=== PATIENT | female | born 1960 | race African-American/Black ===

== ENCOUNTER 2018-02-06 03:33 | Inpatient (IN) | payer OTHER ==
[2018-02-06] MEDS ORDERED: Albuterol Sulfate 2.5 mg/3 ml Neb ONE ×2 (03:54→05:27)
[2018-02-06] MEDS ORDERED: Dexamethasone 10 MG/ML VIAL ONE (03:55)
[2018-02-06 04:03] LABS: Actual Bicarbonate (HCO3a) 23.9 mEq/L (22-28); CO2 Tension 39.6 mmHg (35.0-45.0); O2 Tension (PaO2) 59.8 mmHg (80.0-100.0)
[2018-02-06 04:04] LABS: Base Excess (BEa) -0.7 mEq/L (-2.0 to +3.0); Hematocrit-ABG 47.8 % (36.0-47.0); Hemoglobin (Hb) 16.3 g/dL (12.0-16.0)
[2018-02-06 04:05] LABS: Analyzer IN Cardio ER; Calcium, Ionized 1.2 mmol/L (1.12-1.30); Puncture Site RRA
[2018-02-06 04:38] LABS: #Eosinphils 0.8 thou/uL (0.0-0.7); #Lymphocytes 1.6 thou/uL (1.20-3.40); #Monocytes 0.4 thou/uL (0.11-0.59); #Neutrophils 2.8 thou/uL (1.40-6.50); %Basophils 0.8 % (0.0-1.0); %Eosinophils 13.7 % (0.0-10.0); %Lymphocytes 28.4 % (21.0-51.0); %Monocytes 7.6 % (0.0-10.0); %Neutrophils 49.6 % (42.0-75.0); Mean Corpuscular HGB CONC 33.7 g/dL (32.0-36.0); Mean Corpuscular Hemoglobin 29.8 pg (27.0-31.0); Mean Corpuscular Volume 88.4 fL (78.0-98.0); Mean Platelet Volume 8.1 fL (7.4-10.4); Platelet Count 179 thou/uL (130-400); RBC Distribution Width 12.2 % (11.5-14.5); White Blood Cell (WBC) Count 5.7 thou/uL (4.8-10.8)
[2018-02-06 04:57] LABS: ALT (SGPT) 11 U/L (8-55); AST (SGOT) 21 U/L (5-34); Albumin 4.9 g/dL (3.5-5.0); Alkaline Phosphatase 109 U/L (40-150); Anion Gap 15 mmol/L (10-20); BUN (Urea Nitrogen) 20 mg/dL (9.8-20.1); Bilirubin, Total 1.6 mg/dL (0.2-1.2); CK (CPK) 143 U/L (29-168); Calc. Creatinine Clearance 0 mL/min (70-130); Calcium 9.4 mg/dL (7.8-10.44); Carbon Dioxide 24 mmol/L (22-29); Chloride 106 mmol/L (98-107); Estimated GFR-MDRD 72; Globulin 2.7 g/dL (2.4-3.5); Glucose 95 mg/dL (70-105); Lipase 20 U/L (8-78); Potassium 3.8 mmol/L (3.5-5.1); Protein, Total 7.6 g/dL (6.0-8.3); Sodium 141 mmol/L (136-145)
[2018-02-06 04:59] LABS: CKMB 2.1 ng/mL (0-6.6)
[2018-02-06 05:07] LABS: Troponin I Less than 0.010 ng/mL (< 0.028)
[2018-02-06] MEDS ORDERED: Magnesium Sulfate 2 GM in Sodium Chloride 0.9% 100 ML IVPB SCH (05:45)
[2018-02-06] MEDS ORDERED: Nitroglycerin 0.4 MG TAB (25 Tab Bottle) ONE (05:51)
[2018-02-06] MEDS ORDERED: Ondansetron ODT 4 MG TAB SL PRN (07:29)
[2018-02-06] MEDS ORDERED: Ondansetron HCl/PF 4 MG/2 ML Vial IVP PRN (07:29)
[2018-02-06] MEDS ORDERED: Sodium Chloride 0.9% 1,000 ML IV SCH (07:29)
[2018-02-06 07:34] VITALS: BMI 26.3
--- NOTE | 2018-02-06 08:04 | RAD ---
SINGLE VIEW OF THE CHEST: COMPARISON: 10/21/15. HISTORY: Dyspnea. FINDINGS: Single view of the chest shows a normal sized cardiomediastinal silhouette. There is no evidence of c onsolidation, mass, or pleural effusion. The bones are unremarkable. IMPRESSION: No evidence of acute cardiopulmonary disease. POS: [facility]
[2018-02-06] MEDS ORDERED: Cepastat Lozenges 1 LOZ PO PRN (08:38)
[2018-02-06] MEDS: Sodium Chloride 0.9% 1,000 ML IV SCH ×2 (08:56→18:10)
--- NOTE | 2018-02-06 09:05 | HP ---
HISTORY OF PRESENT ILLNESS: This is a 57-year-old black female with a history of schizophrenia, bipo lar disorder, well controlled, who presents with a 2-day history of increasing cough, congestion and shortness of breath. No complaints of fever. She does smoke a half pack per day of tobacco for over 35 years. She has had no prior hospitalizations. She does use recreational drugs. She has been fa irly stable over the past several years. PAST MEDICAL HISTORY: Hypertension, hyperlipidemia, bipolar disorder, schizophrenia, overactive blad donna. PAST SURGICAL HISTORY: Include vaginal delivery x1, and BTL, total abdominal hysterectomy in 04/2010, colonoscopy with polyp resection by Dr. Griffith in 04/2014, repeat 5 years. EGD normal in 04/2014. FAMILY HISTORY: Father with Alzheimer's. Mother with diabetes, breast cancer, hypertens ion. Maternal grandmother with heart disease. Maternal aunt with breast, throat and stomach cancer. SOCIAL HISTORY: She is single. She does smoke half pack per day x35 years. She just drinks occasio nal alcohol. She is on Disability. She lives with her mother, children and siblings. She does have 4 kids. MEDICATIONS: Coreg 12.5 p.o. b.i.d., Seroquel 300 p.o. b.i.d., Lexapro 20 mg daily, simvastatin 40 d aily. ALLERGIES: None. REVIEW OF SYSTEMS: As above. PHYSICAL EXAMINATION: VITAL SIGNS: Blood pressure 167/105, temperature 98.4, pulse 90, respirations 18, pulse ox 98 on 2 l iters O2. GENERAL: The patient is in mild respiratory distress with a moderate cough. HEENT: Clear. HEART: Regular rate and rhythm. LUNGS: With tight breath sounds, minimal air movement. ABDOMEN: Soft, nontender. EXTREMITIES: No edema. LABORATORY: White count 5.7, H&H 17 and 40, platelet of 179. Sodium 141, potassium 3.8, chloride 10 6, creatinine 0.97, BUN 20, glucose 95. Liver functions normal. Troponin I less than 0.010. BNP 59 , lipase 20. ASSESSMENT: 1. Chronic obstructive pulmonary disease exacerbation. 2. Bronchiolitis. 3. History of drug use. 4. Hypertension. 5. Hyperlipidemia. 6. Bipolar disorder. 7. Schizophrenia. PLAN: 1. IV hydration with normal saline at 150 mL per hour. 2. DuoNeb neb treatments q.4 hours. 3. Solu-Medrol 40 IV q.6 hours. 4. Levaquin 750 IV daily. 5. Will hold Coreg for now since patient is wheezing. We will start lisinopril 20 q.a.m., and Norva sc 5 mg p.o. daily. We will continue to monitor her blood pressure throughout the day. 6. Add cough drops. 7. We will also do a serum and urine drug screen.
[2018-02-06] MEDS: Escitalopram Oxalate 20 mg Tablet PO SCH (09:57)
[2018-02-06] MEDS: Amlodipine 5 MG TAB PO SCH (09:57)
[2018-02-06] MEDS: Lisinopril 20 MG TAB PO SCH (09:57)
[2018-02-06 10:35] LABS: Amphetamine Not Detected (NotDetected); Barbiturates Screen Not Detected (NotDetected); Benzodiazepine Screen Not Detected (NotDetected); Cocaine Metabolite Screen Detected (NotDetected); Medtox Control Line Valid? VALID (VALID); Medtox Reader # READER 1; Methadone Not Detected (NotDetected); Methamphetamine Not Detected (NotDetected); Opiate Screen Not Detected (NotDetected); Oxycodone Screen Not Detected (NotDetected); Phencyclidine (PCP) Not Detected (NotDetected); THC/Cannabinoid Screen Not Detected (NotDetected); Tricyclic Screen Not Detected (NotDetected)
[2018-02-06] MEDS ORDERED: cloNIDine 0.1 MG TAB PO PRN (18:04)
[2018-02-06] MEDS ORDERED: ALPRAZolam 0.5 MG TAB PO PRN (18:06)
[2018-02-06] MEDS: Atorvastatin Calcium 20 MG TAB PO SCH (20:33)
[2018-02-07] MEDS: Sodium Chloride 0.9% 1,000 ML IV SCH ×5 (00:02→23:57)
[2018-02-07 06:02] LABS: #Lymphocytes 0.8 thou/uL (1.20-3.40); #Monocytes 0.3 thou/uL (0.11-0.59); #Neutrophils 13.5 thou/uL (1.40-6.50); %Basophils 0.1 % (0.0-1.0); %Eosinophils 0.1 % (0.0-10.0); %Lymphocytes 5.6 % (21.0-51.0); %Monocytes 2.1 % (0.0-10.0); %Neutrophils 92.1 % (42.0-75.0); Hemoglobin 15.2 g/dL (12.0-16.0); Mean Corpuscular HGB CONC 34.4 g/dL (32.0-36.0); Mean Corpuscular Hemoglobin 30.7 pg (27.0-31.0); Mean Corpuscular Volume 89.4 fL (78.0-98.0); Mean Platelet Volume 8.4 fL (7.4-10.4); Platelet Count 180 thou/uL (130-400); RBC Distribution Width 12.2 % (11.5-14.5); Red Blood Cell (RBC) Count 4.96 mill/uL (4.20-5.40); White Blood Cell (WBC) Count 14.6 thou/uL (4.8-10.8)
[2018-02-07 06:22] LABS: Anion Gap 15 mmol/L (10-20); BUN (Urea Nitrogen) 12 mg/dL (9.8-20.1); Calc. Creatinine Clearance 87 mL/min (70-130); Calcium 9.3 mg/dL (7.8-10.44); Carbon Dioxide 18 mmol/L (22-29); Estimated GFR-MDRD 87; Glucose 139 mg/dL (70-105); Potassium 3.8 mmol/L (3.5-5.1); Sodium 142 mmol/L (136-145)
[2018-02-07 06:27] LABS: Chloride 113 mmol/L (98-107)
[2018-02-07] MEDS: Amlodipine 5 MG TAB PO SCH (08:15)
[2018-02-07] MEDS: Lisinopril 20 MG TAB PO SCH (08:15)
[2018-02-07] MEDS: Escitalopram Oxalate 20 mg Tablet PO SCH (08:15)
[2018-02-07] MEDS ORDERED: guaiFENesin/Dextromethorphan 10 ML UDCUP PO PRN (08:42)
--- NOTE | 2018-02-07 10:11 | PRG ---
DATE OF SERVICE: 02/07/2018 SUBJECTIVE: The patient is feeling better today, but she still has significant cough and congestion. OBJECTIVE: VITAL SIGNS: Temperature 98.1, pulse 99, pulse ox 96, respirations 18, O2 2 liters, blood pressure 1 31/77. HEART: Regular rate and rhythm. LUNGS: Increased breath sounds, but still tight with congestion noted and occasional expiratory whee zes. ABDOMEN: Soft. EXTREMITIES: No edema. LABORATORY: White count 14.6, H&H 15 and 44. Electrolytes normal. Creatinine 0.82, BUN 12. ASSESSMENT: 1. Chronic obstructive pulmonary disease exacerbation, slowly improving. 2. Bronchiolitis. 3. Cocaine abuse. 4. Hypertension. 5. Hyperlipidemia. 6. Bipolar disorder. 7. Schizophrenia. PLAN: 1. Continue IV hydration. 2. Change DuoNeb treatments to q.6 hours. 3. Continue Solu-Medrol. 4. Continue Levaquin. 5. Add Robitussin-DM 10 mL q.6 p.r.n. and Mucinex 600 b.i.d.
[2018-02-07] MEDS: guaiFENesin ER 600 MG TAB PO SCH ×2 (10:18→20:04)
[2018-02-07] MEDS ORDERED: Guaifenesin DM 100-10/5 ML UDCUP PO PRN (17:00)
[2018-02-07] MEDS: Atorvastatin Calcium 20 MG TAB PO SCH (20:04)
[2018-02-08] MEDS: Sodium Chloride 0.9% 1,000 ML IV SCH ×2 (05:15→17:15)
[2018-02-08 05:35] LABS: #Lymphocytes 0.9 thou/uL (1.20-3.40); #Monocytes 0.3 thou/uL (0.11-0.59); #Neutrophils 13.8 thou/uL (1.40-6.50); %Eosinophils 0.1 % (0.0-10.0); %Lymphocytes 5.9 % (21.0-51.0); %Monocytes 1.9 % (0.0-10.0); %Neutrophils 92.1 % (42.0-75.0); Hemoglobin 14.7 g/dL (12.0-16.0); Mean Corpuscular HGB CONC 34.6 g/dL (32.0-36.0); Mean Corpuscular Volume 89.6 fL (78.0-98.0); Mean Platelet Volume 8.5 fL (7.4-10.4); Platelet Count 157 thou/uL (130-400); RBC Distribution Width 12.6 % (11.5-14.5); Red Blood Cell (RBC) Count 4.75 mill/uL (4.20-5.40); White Blood Cell (WBC) Count 14.9 thou/uL (4.8-10.8)
[2018-02-08 06:00] LABS: Anion Gap 11 mmol/L (10-20); BUN (Urea Nitrogen) 11 mg/dL (9.8-20.1); Calc. Creatinine Clearance 100 mL/min (70-130); Carbon Dioxide 22 mmol/L (22-29); Chloride 114 mmol/L (98-107); Estimated GFR-MDRD Greater than 90; Glucose 134 mg/dL (70-105); Potassium 3.8 mmol/L (3.5-5.1); Sodium 143 mmol/L (136-145)
[2018-02-08 06:18] LABS: HIV (1/2) Antibody/Antigen Non-Reactive (NonReactive); HIV 1/2 INDEX 0.12 S/CO (<1.00)
[2018-02-08] MEDS: guaiFENesin ER 600 MG TAB PO SCH ×2 (08:54→20:29)
[2018-02-08] MEDS: Lisinopril 20 MG TAB PO SCH (08:54)
[2018-02-08] MEDS: Escitalopram Oxalate 20 mg Tablet PO SCH (08:54)
[2018-02-08] MEDS: Amlodipine 5 MG TAB PO SCH (08:54)
[2018-02-08] MEDS ORDERED: traMADol HCl 50 MG TAB PO PRN (10:15)
--- NOTE | 2018-02-08 11:56 | PRG ---
DATE OF SERVICE: 02/08/2018 SUBJECTIVE: The patient continues to improve. Still with cough, but less. States she is breathing easier. OBJECTIVE: VITAL SIGNS: Temperature 98.1, pulse 86, respirations 18, blood pressure 146/78 on 1 liter O2 nasal cannula, pulse ox 96%. LABORATORY: Electrolytes normal. Blood sugar 134, creatinine 0.7, BUN 11. White count 14.9, H and H 14 and 42, platelet 157. ASSESSMENT: 1. Chronic obstructive pulmonary disease exacerbation, slowly improving. 2. Bronchiolitis. 3. Cocaine abuse. 4. One of 2 positive blood cultures for gram negative rods. C and S pending. 5. Hypertension. 6. Hyperlipidemia. 7. Bipolar disorder. 8. Schizophrenia. PLAN: 1. Weight C and S of the blood culture. 2. Continue present treatment. 3. Possible discharge in a.m.
[2018-02-08] MEDS: Atorvastatin Calcium 20 MG TAB PO SCH (20:29)
[2018-02-09 07:22] VITALS: BP 152/83; TEMP 98.5
[2018-02-09] MEDS: Amlodipine 5 MG TAB PO SCH (08:46)
[2018-02-09] MEDS: guaiFENesin ER 600 MG TAB PO SCH (08:47)
[2018-02-09] MEDS: Escitalopram Oxalate 20 mg Tablet PO SCH (08:47)
[2018-02-09] MEDS: Lisinopril 20 MG TAB PO SCH (08:47)
--- NOTE | 2018-02-09 11:51 | DIS ---
DISCHARGE DIAGNOSES: 1. Chronic obstructive pulmonary disease exacerbation. 2. Bronchiolitis. 3. Cocaine abuse. 4. Tobacco abuse. 5. Hypertension. 6. Hyperlipidemia. 7. Bipolar disorder. 8. Schizophrenia. DISCHARGE MEDICATIONS: Lexapro 20 mg daily, Seroquel 300 p.o. at bedtime, simvastatin 40 mg daily, C oreg 12.5 p.o. b.i.d., Levaquin 500 p.o. daily x7 days, Medrol Dosepak, Phenergan with codeine 1 teas britt q.6h. p.r.n. cough, nebulizers with supplies and DuoNeb premix treatment. BRIEF HISTORY: This 57-year-old black female with history of schizophrenia, bipolar disorder, well c ontrolled, who presents with a 2-day history of increasing cough, congestion, shortness of breath. N o complaints of any fever. She does smoke half pack of cigarettes per day and also smokes marijuana recreationally. HOSPITAL COURSE: The patient was admitted. She was started on IV Levaquin as well as Solu-Medrol fo r COPD. Over several days, her chest tightness slowly resolved and her wheezing improved dramaticall y. She was weaned off of her oxygen. She is doing quite well at this time. Blood culture came back for Corynebacterium, which innocuous. The patient is doing well. She has remained afebrile the ent don hospital stay. She will be discharged on Levaquin p.o., DuoNeb treatments, Medrol Dosepak and sh e will follow up in the office in 1 week. White count 14.9, H&H 14 and 42. Electrolytes normal. Creatinine 0.74, BUN 11, blood sugar 134. Li salazar function tests normal. Troponin I less than 0.010. BNP 59. Chest x-ray negative.
== END 2018-02-09 11:10 | disposition home or self-care (01) | DRG 191 ==
LOC: ERS 03:33 → IMCU/EMU 07:29 → 2NO 16:50
PROVIDERS: ADMIT Family Medicine; ATTEND Family Medicine
DX: J44.1 Chronic obstructive pulmonary disease with (acute) exacerbation (principal); J21.9 Acute bronchiolitis, unspecified; J44.0 Chronic obstructive pulmonary disease with (acute) lower respiratory infection; I48.91 Unspecified atrial fibrillation; R06.03 Acute respiratory distress; E78.5 Hyperlipidemia, unspecified; I10 Essential (primary) hypertension; F12.10 Cannabis abuse, uncomplicated; F17.210 Nicotine dependence, cigarettes, uncomplicated; I45.81 Long QT syndrome; F20.9 Schizophrenia, unspecified; F31.9 Bipolar disorder, unspecified; N32.81 Overactive bladder; F14.10 Cocaine abuse, uncomplicated; Z90.710 Acquired absence of both cervix and uterus; Z86.010 Personal history of colon polyps; Z82.0 Family history of epilepsy and other diseases of the nervous system; Z79.899 Other long term (current) drug therapy; Z83.3 Family history of diabetes mellitus; Z80.3 Family history of malignant neoplasm of breast; Z80.0 Family history of malignant neoplasm of digestive organs
CPT/HCPCS: 36415; 71045; 80048; 80053; 80306; 82553; 82805; 83605; 83690; 83880; 84484; 85025; 87040; 87389; 93005; 96361; 96365; 96375; A4216; J1100; J1956; J2920; J3475; J7050; J7611; J7620

== ENCOUNTER 2018-03-03 20:29 | Emergency (ER) | payer OTHER ==
[2018-03-03] MEDS ORDERED: Albuterol Sulfate 2.5 mg/3 ml Neb ONE ×3 (21:14)
[2018-03-03] MEDS ORDERED: Albuterol Sulfate 2.5 mg/0.5 ml Neb ONE (21:15)
[2018-03-03 21:17] LABS: #Basophils 0.1 thou/uL (0.0-0.2); #Eosinphils 0.8 thou/uL (0.0-0.7); #Lymphocytes 1.5 thou/uL (1.20-3.40); #Monocytes 0.5 thou/uL (0.11-0.59); #Neutrophils 2.4 thou/uL (1.40-6.50); %Basophils 1.3 % (0.0-1.0); %Eosinophils 15.1 % (0.0-10.0); %Lymphocytes 28.5 % (21.0-51.0); %Neutrophils 46.1 % (42.0-75.0); Hemoglobin 14.3 g/dL (12.0-16.0); Mean Corpuscular HGB CONC 35.9 g/dL (32.0-36.0); Mean Corpuscular Volume 89.1 fL (78.0-98.0); Mean Platelet Volume 7.8 fL (7.4-10.4); Platelet Count 182 thou/uL (130-400); RBC Distribution Width 12.2 % (11.5-14.5); Red Blood Cell (RBC) Count 4.46 mill/uL (4.20-5.40); White Blood Cell (WBC) Count 5.2 thou/uL (4.8-10.8)
--- NOTE | 2018-03-03 21:22 | RAD ---
PORTABLE AP CHEST X-RAY: 03/03/18 HISTORY: Dyspnea, difficulty breathing. COMPARISON: 02/06/18. FINDINGS: The cardiac silhouette is magnified by projection. Pulmonary vasculature is within normal limits. The lungs remain clear. Degenerative changes are again present in the spine. There has been no interval change from prior exam. IMPRESSION: Stable chest without evidence of an acute cardiopulmonary process. POS: [facility]
[2018-03-03 21:39] LABS: ALT (SGPT) 14 U/L (8-55); AST (SGOT) 23 U/L (5-34); Alkaline Phosphatase 88 U/L (40-150); Anion Gap 14 mmol/L (10-20); BUN (Urea Nitrogen) 18 mg/dL (9.8-20.1); Bilirubin, Total 0.6 mg/dL (0.2-1.2); Calc. Creatinine Clearance 0 mL/min (70-130); Calcium 8.7 mg/dL (7.8-10.44); Carbon Dioxide 19 mmol/L (22-29); Chloride 109 mmol/L (98-107); Estimated GFR-MDRD 68; Globulin 2.5 g/dL (2.4-3.5); Glucose 90 mg/dL (70-105); Lipase 23 U/L (8-78); Potassium 3.8 mmol/L (3.5-5.1); Protein, Total 6.5 g/dL (6.0-8.3); Sodium 138 mmol/L (136-145)
[2018-03-03 21:44] LABS: CKMB 1.5 ng/mL (0-6.6); Troponin I Less than 0.010 ng/mL (< 0.028)
[2018-03-03] MEDS ORDERED: Magnesium 2 GM/NS 0.9% 100 ML 2 GM in Premix Bag 1 BAG IVPB SCH (22:15)
== END 2018-03-03 23:20 | disposition home or self-care (01) ==
LOC: ERS 20:29
DX: J44.1 Chronic obstructive pulmonary disease with (acute) exacerbation (principal); I48.91 Unspecified atrial fibrillation; E78.5 Hyperlipidemia, unspecified; I10 Essential (primary) hypertension; F17.210 Nicotine dependence, cigarettes, uncomplicated; Z79.82 Long term (current) use of aspirin; Z79.899 Other long term (current) drug therapy
CPT/HCPCS: 36415; 71045; 80053; 82553; 83690; 83880; 84484; 85025; 93005; J3475; J7611

== ENCOUNTER 2018-03-19 01:22 | Inpatient (IN) | payer OTHER ==
[2018-03-19] MEDS ORDERED: Lorazepam 2 MG/ML VIAL ONE (01:34)
[2018-03-19 01:59] LABS: #Basophils 0.1 thou/uL (0.0-0.2); #Eosinphils 0.6 thou/uL (0.0-0.7); #Lymphocytes 2.4 thou/uL (1.20-3.40); #Monocytes 0.7 thou/uL (0.11-0.59); #Neutrophils 4.7 thou/uL (1.40-6.50); %Basophils 1.4 % (0.0-1.0); %Eosinophils 7.1 % (0.0-10.0); %Lymphocytes 28.2 % (21.0-51.0); %Monocytes 7.9 % (0.0-10.0); %Neutrophils 55.5 % (42.0-75.0); Mean Corpuscular HGB CONC 35.9 g/dL (32.0-36.0); Mean Corpuscular Hemoglobin 32.3 pg (27.0-31.0); Mean Corpuscular Volume 90.1 fL (78.0-98.0); Mean Platelet Volume 7.8 fL (7.4-10.4); Platelet Count 181 thou/uL (130-400); RBC Distribution Width 12.7 % (11.5-14.5); Red Blood Cell (RBC) Count 4.64 mill/uL (4.20-5.40); White Blood Cell (WBC) Count 8.4 thou/uL (4.8-10.8)
[2018-03-19 02:12] LABS: Base Excess (BEa) -2.5 mEq/L (-2.0 to +3.0); CO2 Tension 60.8 mmHg (35.0-45.0); Hematocrit-ABG 43.7 % (36.0-47.0); O2 Tension (PaO2) 75.8 mmHg (80.0-100.0); pH, Arterial 7.25 (7.35-7.45)
[2018-03-19 02:13] LABS: Analyzer IN Cardio ER; Calcium, Ionized 1.3 mmol/L (1.12-1.30); Hemoglobin (Hb) 14.5 g/dL (12.0-16.0)
[2018-03-19 02:13] LABS: ALT (SGPT) 19 U/L (8-55); AST (SGOT) 34 U/L (5-34); Albumin 4.2 g/dL (3.5-5.0); Alkaline Phosphatase 85 U/L (40-150); Anion Gap 13 mmol/L (10-20); BUN (Urea Nitrogen) 12 mg/dL (9.8-20.1); Calc. Creatinine Clearance 0 mL/min (70-130); Carbon Dioxide 22 mmol/L (22-29); Chloride 108 mmol/L (98-107); Estimated GFR-MDRD 69; Globulin 2.8 g/dL (2.4-3.5); Glucose 119 mg/dL (70-105); Potassium 4.5 mmol/L (3.5-5.1); Sodium 138 mmol/L (136-145)
[2018-03-19 02:14] LABS: Puncture Site RRA
[2018-03-19 02:17] LABS: Troponin I Less than 0.010 ng/mL (< 0.028)
[2018-03-19 03:51] VITALS: BMI 28.3
[2018-03-19] MEDS ORDERED: Acetaminophen 325 MG TAB PO PRN (04:07)
[2018-03-19] MEDS ORDERED: Ondansetron ODT 4 MG TAB SL PRN (04:07)
[2018-03-19] MEDS ORDERED: Ondansetron HCl/PF 4 MG/2 ML Vial IVP PRN (04:07)
[2018-03-19] MEDS ORDERED: methylPREDNISolone Sod Succ/PF 125 MG/2 ML VIAL IVP SCH (06:00)
--- NOTE | 2018-03-19 09:00 | HP ---
HISTORY OF PRESENT ILLNESS: This is a 57-year-old black female with a history of bipolar disorder, s chizophrenia well controlled and chronic obstructive pulmonary disease who presents with acute onset of shortness of breath. The patient was hospitalized in January with a similar incident. At that time she was treated with IV Levaquin and Solu-Medrol and over several days she improved dramatically. Jayson huertas was doing well until approximately 1 week ago. She was having occasional bouts of shortness of thony ath. Nothing significant according to her. Then, suddenly last night she became acutely short of br eath, wheezing, and presented to the emergency room asking for oxygen. She reports no history of fev er. She has no recent history of exposure. She is outside some. She states she quit smoking on . Previously was a heavy tobacco user as well as possibly marijuana and methamphetamines. PAST MEDICAL HISTORY: Schizophrenia, bipolar disorder followed at [facility], overactive bladder, hyperten dahlia, hyperlipidemia. PAST SURGICAL HISTORY: Include history of vaginal deliveries and sections, status post OSORIO by Dr. Ramsey 04/2010. Last colonoscopy 04/[address] Griffith as well as an EGD. FAMILY HISTORY: Father from Alzheimer's. Mother with diabetes, breast cancer, maternal gra ndmother with heart disease. Maternal aunt with breast, throat and stomach cancer. SOCIAL HISTORY: Previous smoker. Lives with her mother and children as well as some siblings. She is unemployed. She is disabled, single. She does have 4 kids. She does have a 1 pack per day x35 y ear tobacco history. MEDICATIONS: Coreg 25 b.i.d., Seroquel 300 two daily, Lexapro 20 mg daily, simvastatin 40 daily, alb uterol p.r.n. ALLERGIES: None. REVIEW OF SYSTEMS: As above. PHYSICAL EXAMINATION: VITAL SIGNS: Temperature 98.1, pulse of 94, respiration 20, pulse ox 100, blood pressure 125/80. GENERAL: The patient is presently on BiPAP with shortness of breath. HEENT: Clear. HEART: Regular rate and rhythm. LUNGS: Decreased breath sounds, expiratory rhonchi and shallow respirations. ABDOMEN: Soft, nontender. EXTREMITIES: With no edema. LABORATORY: White count 8.4, H&H 15 and 41. Sodium 138, potassium 4.5, creatinine 1.0, BUN 12, bloo d sugar 119. Liver functions normal. BNP 39.7. Chest x-ray shows hyperinflation. Radiology reading pending. ASSESSMENT: 1. Chronic obstructive pulmonary disease exacerbation. 2. History of tobacco and methamphetamine use. 3. Schizophrenia/bipolar disorder, well controlled with Seroquel and Lexapro followed by [facility]. 4. Hypertension. 5. Hyperlipidemia. PLAN: 1. DuoNeb treatments q.3h. 2. Hydration. 3. BiPAP presently. 4. Consult Pulmonary. 5. Solu-Medrol 40 mg IV q.6 hours. 6. Might consider stopping the Coreg which may be contributing to the chronic obstructive pulmonary disease exacerbation. 7. We will obtain echo, rule out any possible systolic/diastolic dysfunction.
[2018-03-19] MEDS: Escitalopram Oxalate 20 mg Tablet PO SCH (09:02)
--- NOTE | 2018-03-19 09:52 | RAD ---
PORTABLE CHEST: 03/19/2018 PROVIDED CLINICAL HISTORY: Dyspnea. COMPARISON: 03/03/2018 FINDINGS: The cardiac silhouette appears enlarged. Blunting of the left costophrenic angle, compatible with pl eural fluid. No evidence for pneumothorax. The lungs appear clear. IMPRESSION: Blunting of the left costophrenic angle may reflect left pleural effusion. CODE T POS: [facility]
--- NOTE | 2018-03-19 11:24 | CON ---
DATE OF CONSULTATION: 03/19/2018 HISTORY OF PRESENT ILLNESS: Olivia Staley is a 57-year-old female with a longstan ding history of tobacco abuse. She has never seen a music manager. She was just recently discharged from the hospital 01/2018 and now presented with increasing shortness of breath, coughing, and wheez ing, unresponsive to her usual home medication. Longstanding history of substance abuse, still drink ing 4 beers a day. She denies any coughing or chest pain. PAST MEDICAL HISTORY: 1. COPD. 2. Tobacco abuse. 3. Substance abuse. 4. Schizophrenia, bipolar. 5. Atrial fibrillation. PAST SURGICAL HISTORY: Otherwise included hysterectomy, colonoscopy and endoscopy. Tubal ligation. MEDICATIONS FROM HOME: Includes DuoNeb, Lexapro 20, Coreg 12.5 twice a day, Zocor 40, albuterol inha ler. Seroquel 300. ALLERGIES: None. SOCIAL/FAMILY HISTORY: Disabled. Alcohol as noted. Tobacco as noted. Substance abuse as noted. REVIEW OF SYSTEMS: Ten point negative. PHYSICAL EXAMINATION: VITAL SIGNS: Sats are now 96-98 on 2 liters, pulse 80, blood pressure 130/80. CHEST: Chest revealed decreased breath sounds, bilateral wheezing. CARDIAC: Normal S1, S2. No gallops. ABDOMEN: Soft, no mass. LABORATORY: PO2 was 75, pCO2 of 60% on 2.5 on a BiPAP. She does show respiratory acidosis. White c ount 8000, H&H 15 and 41, platelet count normal. Chest x-ray was normal. Electrolytes are normal. IMPRESSION: 1. Chronic obstructive pulmonary disease exacerbation and bronchitis. 2. Bipolar. 3. Atrial fibrillation. PLAN: Pulmonary-melton, continue present treatment. I have added Rashawn, baseline PFT. This is a consultation note, 70 minutes, 50% spent in direct patient care.
[2018-03-19] MEDS: Mometasone/Formoterol 120 PUFF INHALER INH SCH (19:26)
[2018-03-19] MEDS ORDERED: Simvastatin 40 MG TAB PO SCH (21:00)
[2018-03-19] MEDS: Atorvastatin Calcium 20 MG TAB PO SCH (21:12)
[2018-03-20] MEDS: Mometasone/Formoterol 120 PUFF INHALER INH SCH ×2 (07:57→18:35)
[2018-03-20] MEDS: Escitalopram Oxalate 20 mg Tablet PO SCH (08:24)
--- NOTE | 2018-03-20 08:26 | PRG ---
DATE OF SERVICE: 03/20/2018 at 0800 SUBJECTIVE: The patient is improved somewhat, but still with significant cough. OBJECTIVE: VITAL SIGNS: Temperature 98.1, pulse 96, respirations 16, pulse oximetry 96 on 2 liters O2, blood pr essure 126/87. CARDIAC: Regular rate and rhythm. LUNGS: Increased breath sounds, still with some expiratory wheezes. ABDOMEN: Soft, nontender. EXTREMITIES: No edema. LABORATORY: None. ASSESSMENT: 1. Chronic obstructive pulmonary disease exacerbation. 2. Tobacco abuse. Last smoked 02/05/2018; however, last smoking of cocaine was 3 days prior to admi ssion. 3. Schizophrenia/bipolar disorder. 4. Hypertension. 5. Hyperlipidemia. PLAN: 1. Continue neb treatments. 2. Continue hydration. 3. Continue steroids, consider changing to p.o. in the next day or so. 4. We will not restart Coreg at this time, blood pressure remains controlled, will consider adding l osartan if necessary. 5. Echo pending.
--- NOTE | 2018-03-20 08:55 | PRG ---
DATE OF SERVICE: 03/20/2018 This morning she is better. She is still short of breath, still coughing. PHYSICAL EXAMINATION: VITAL SIGNS: Sats are 96% on 2 liters, blood pressure is 126/84, pulse 84, temperature 98. CHEST: Bilateral wheezing. CARDIAC: Normal S1-S2. No gallops. IMPRESSION: 1. Chronic obstructive pulmonary disease exacerbation. 2. Bronchitis. 3. Tobacco abuse. 4. Bipolar. PLAN: Continue present neb treatments, steroids. Probably p.o. prednisone tomorrow. I will follow.
[2018-03-20] MEDS: Atorvastatin Calcium 20 MG TAB PO SCH (20:24)
[2018-03-21] MEDS: Mometasone/Formoterol 120 PUFF INHALER INH SCH ×2 (07:12→18:20)
[2018-03-21] MEDS: Escitalopram Oxalate 20 mg Tablet PO SCH (08:53)
--- NOTE | 2018-03-21 11:35 | PRG ---
DATE OF SERVICE: 03/21/2018 PRIMARY CARE PHYSICIAN: Dr. Helder Bustamante. SUBJECTIVE: The patient is feeling much better. She continues to cough and feel short of breath wit h strenuous activity, but definitely improving. She denies fevers or chills. Denies nausea and vomi ting. Appetite has improved as well. OBJECTIVE: VITAL SIGNS: Temperature 98.2, pulse is 70, respirations 18, blood pressure 142/75, pulse ox is 98% on 2 liters. GENERAL: She is an awake and alert, some conversational dyspnea, but in no acute distress. NECK: Supple. HEART: Regular rate and rhythm. LUNGS: With occasional wheezes, but good aeration. ABDOMEN: Soft. EXTREMITIES: With no edema. LABORATORY DATA: Echocardiogram is pending. ASSESSMENT AND PLAN: This is a 57-year-old female with chronic obstructive pulmonary disease exacerb ation, history of tobacco abuse, history of cocaine abuse, now with improved chronic obstructive pulm onary disease exacerbation. PLAN: 1. We will continue nebulizers. We will wean oxygen and wean steroids. 2. Possible cardiomyopathy, awaiting echocardiogram. Consider adding losartan if her blood pressure rises. 3. Schizophrenia, bipolar disorder. We will continue Seroquel, but return to her usual home dose of 150 mg daily. DISPOSITION: Hopefully home tomorrow if she tolerates the wean of the steroids.
[2018-03-21] MEDS: predniSONE 20 MG TAB PO SCH (20:32)
[2018-03-21] MEDS: Atorvastatin Calcium 20 MG TAB PO SCH (20:33)
--- NOTE | 2018-03-22 00:45 | CON ---
DATE OF CONSULTATION: 03/21/2018 HISTORY OF PRESENT ILLNESS: Ms. Staley is in no distress. She says she is feeling much better. She still gets short of breath, moving in around. She has no pain. PHYSICAL EXAMINATION: VITAL SIGNS: She is afebrile, heart rate 74, respiratory rate is 19, oximetry is 96 on 2 liters, blo od pressure 174/109 this afternoon and 115/97 earlier. LUNGS: Remarkable for end-expiratory wheezes. HEART: Regular rhythm. No S3. ABDOMEN: Soft and nontender. EXTREMITIES: Without edema. NEUROLOGIC: Grossly nonfocal. LABORATORY DATA: There is no new lab. IMPRESSION: 1. Chronic obstructive pulmonary disease exacerbation. 2. Bronchitis. 3. Tobacco use. 4. Bipolar illness. PLAN: Continue current medications. Dr. Remy recommended switching to prednisone today. This has been done.
[2018-03-22 07:17] VITALS: BP 148/80; TEMP 98.9
[2018-03-22] MEDS: Mometasone/Formoterol 120 PUFF INHALER INH SCH (07:27)
[2018-03-22] MEDS: predniSONE 20 MG TAB PO SCH (08:41)
[2018-03-22] MEDS: Escitalopram Oxalate 20 mg Tablet PO SCH (08:41)
--- NOTE | 2018-03-22 09:13 | DIS ---
DATE OF ADMISSION: 03/19/2018 DATE OF DISCHARGE: 03/22/2018 ADMISSION DIAGNOSES: Chronic obstructive pulmonary disease exacerbation, bronchitis, respiratory dis tress. DISCHARGE DIAGNOSES: Chronic obstructive pulmonary disease, improved; bipolar; schizophrenia; hypert ension; hyperlipidemia; diastolic dysfunction. PROCEDURES: Telemetry monitoring, IV steroids, IV antibiotics, echocardiogram. CONSULTATIONS: Dr. Munoz and Dr. Remy from Pulmonary. HOSPITAL COURSE: This is a 57-year-old patient of Dr. Helder Bustamante's with a history of COPD, bipolar and schizophrenia, recently quit smoking in 01/2018, but continues to use illicit drugs. She presen roni to the emergency department with difficulty breathing. She failed improvement with neb treatment s, steroids and was started on IV antibiotics and IV steroids on admission as well as oxygen therapy. She initially needed BiPAP, which was able to be weaned quickly. Dr. Remy saw the patient in [facility] and agreed with the plan. It was felt like she would improve with steroids. She was able to w trever off of BiPAP. She has improved dramatically throughout her hospitalization. She continued to co ugh, but was less short of breath. She was able to wean off of oxygen. She did not meet requirement s for home O2. Discussions as far as continuing to avoid smoking were made. She was able to wean to oral steroids and stable for discharge on the day of discharge. DISCHARGE PHYSICAL EXAMINATION: VITAL SIGNS: Temperature 98.9, pulse of 94, respirations 16, blood pressure 148/80, pulse ox is 97% on room air. GENERAL: She is awake and alert, in no acute distress. She is comfortable in bed. HEENT: Mucosa is moist. NECK: Supple. HEART: Regular rate and rhythm. LUNGS: Clear. Scattered wheezes, but no rhonchi, no rales. ABDOMEN: Soft. EXTREMITIES: With no edema. LABORATORY DATA: Reviewed. DISCHARGE MEDICATIONS: Include prednisone taper, DuoNeb p.r.n., simvastatin daily, Lexapro 20 mg onel ly, Seroquel 150 mg at bedtime, benzonatate p.r.n. cough, blood pressure medicine Coreg was discontin ued due to beta ludwin possibly exacerbating her lungs. We will have her follow up in 1 week to rec heck her blood pressure and consider starting losartan at that time. FOLLOWUP INSTRUCTIONS: Patient will follow up with Dr. Bustamante in 1 week.
== END 2018-03-22 10:56 | disposition home or self-care (01) | DRG 192 ==
LOC: ERS 01:22 → IMCU/EMU 03:45
PROVIDERS: ADMIT Family Medicine; ATTEND Family Medicine
DX: J44.1 Chronic obstructive pulmonary disease with (acute) exacerbation (principal); F31.9 Bipolar disorder, unspecified; F20.9 Schizophrenia, unspecified; I10 Essential (primary) hypertension; E78.5 Hyperlipidemia, unspecified; F17.210 Nicotine dependence, cigarettes, uncomplicated; F14.10 Cocaine abuse, uncomplicated; I48.91 Unspecified atrial fibrillation; F60.0 Paranoid personality disorder; F12.10 Cannabis abuse, uncomplicated; N32.81 Overactive bladder
CPT/HCPCS: 36415; 71045; 80053; 82553; 82805; 83880; 84484; 85025; 93005; 93306; 94060; 94640; 94660; 94664; 94727; 94729; 94760; 96374; A4216; G8978-GP-CJ; G8979-GP-CJ; G8980-GP-CJ; J2060; J2920; J2930; J7506; J7620

== ENCOUNTER 2018-06-25 04:59 | Emergency (ER) | payer OTHER | END 2018-06-25 05:36 | disposition home or self-care (01) | LOC: ERS 04:59 | DX: Z00.00 Encounter for general adult medical examination without abnormal findings (principal); M54.2 Cervicalgia; I10 Essential (primary) hypertension; I48.91 Unspecified atrial fibrillation; E78.5 Hyperlipidemia, unspecified; Z79.899 Other long term (current) drug therapy; Z79.82 Long term (current) use of aspirin | CPT/HCPCS: 99283 ==

== ENCOUNTER 2018-10-19 04:31 | Inpatient (IN) | payer OTHER ==
[2018-10-19] MEDS ORDERED: methylPREDNISolone Sod Succ/PF 125 MG/2 ML VIAL ONE (05:07)
[2018-10-19] MEDS ORDERED: Magnesium 2 GM/50 ML BAG (IN WATER) ONE (05:07)
[2018-10-19 05:17] LABS: #Basophils 0.1 thou/uL (0.0-0.2); #Eosinphils 0.8 thou/uL (0.0-0.7); #Monocytes 0.3 thou/uL (0.11-0.59); #Neutrophils 2.7 thou/uL (1.40-6.50); %Basophils 1.3 % (0.0-1.0); %Eosinophils 13.3 % (0.0-10.0); %Lymphocytes 33.9 % (21.0-51.0); %Monocytes 5.9 % (0.0-10.0); %Neutrophils 45.7 % (42.0-75.0); Hemoglobin 15.4 g/dL (12.0-16.0); Mean Corpuscular HGB CONC 33.9 g/dL (32.0-36.0); Mean Corpuscular Hemoglobin 30.6 pg (27.0-31.0); Mean Corpuscular Volume 90.2 fL (78.0-98.0); Mean Platelet Volume 8.2 fL (7.4-10.4); Platelet Count 214 thou/uL (130-400); RBC Distribution Width 12.3 % (11.5-14.5); Red Blood Cell (RBC) Count 5.03 mill/uL (4.20-5.40); White Blood Cell (WBC) Count 5.8 thou/uL (4.8-10.8)
[2018-10-19 05:41] LABS: ALT (SGPT) 19 U/L (8-55); AST (SGOT) 29 U/L (5-34); Albumin 4.9 g/dL (3.5-5.0); Alkaline Phosphatase 93 U/L (40-150); Anion Gap 18 mmol/L (10-20); BUN (Urea Nitrogen) 14 mg/dL (9.8-20.1); Bilirubin, Total 0.5 mg/dL (0.2-1.2); CK (CPK) 313 U/L (29-168); Calc. Creatinine Clearance 0 mL/min (70-130); Calcium 10.1 mg/dL (7.8-10.44); Carbon Dioxide 23 mmol/L (22-29); Chloride 106 mmol/L (98-107); Estimated GFR-MDRD 72; Glucose 86 mg/dL (70-105); Potassium 3.5 mmol/L (3.5-5.1); Protein, Total 7.9 g/dL (6.0-8.3); Sodium 143 mmol/L (136-145)
--- NOTE | 2018-10-19 08:16 | RAD ---
SINGLE VIEW CHEST: HISTORY: Dyspnea. COMPARISON: 03/19/2018 FINDINGS: Single view of the chest show normal sized cardiomediastinal silhouette. There is no evidence of cons olidation, mass, or pleural effusion. The bones are unremarkable. IMPRESSION: No evidence of acute cardiopulmonary disease. POS: [facility]
[2018-10-19] MEDS ORDERED: Ondansetron ODT 4 MG TAB PO PRN (08:17)
[2018-10-19] MEDS ORDERED: Bacteriostatic Water 30 ML VIAL FS PRN (08:44)
[2018-10-19 08:58] VITALS: BMI 29.0
[2018-10-19] MEDS: cefTRIAXone\\ROCEPHIN 2 GM in Sodium Chloride 0.9% 100 ML IVPB SCH (10:13)
[2018-10-19] MEDS: Sodium Chloride 0.9% 1,000 ML IV SCH ×2 (10:14→17:25)
[2018-10-19] MEDS: Famotidine 20 MG TAB PO SCH ×2 (10:18→22:59)
[2018-10-19] MEDS: Acetaminophen 325 MG TAB PO PRN ×2 (10:18→22:56)
[2018-10-19] MEDS: Escitalopram Oxalate 20 mg Tablet PO SCH (10:19)
[2018-10-19] MEDS: Losartan 25 MG TAB PO SCH (10:20)
[2018-10-19] MEDS: Enoxaparin Sodium 40 MG/0.4 ML SYRINGE SC SCH (10:21)
[2018-10-19] MEDS: methylPREDNISolone Sod Succ 40 MG VIAL IVP SCH ×2 (13:41→17:26)
[2018-10-19] MEDS ORDERED: cloNIDine 0.1 MG TAB PO SCH (14:00)
--- NOTE | 2018-10-19 14:10 | HP ---
HISTORY OF PRESENT ILLNESS: This is a 58-year-old black female, who is being admitted for respiratory distress. The patient has a long history of schizophrenia, well-controlled hypertension, hyperlipidemia, drug abuse, followed by [facility], who presents with a 3-day history of increased productive cough. Last night, her symptoms became significantly worse and then presented to the emergency room. She was admitted several months ago for similar episode. She states she did run out of her blood pressure medicines and she only had an old Coreg tablet, which was stopped for lung issues. However, she also states that several days ago, she also was smoking methamphetamine and marijuana, which she does fairly regularly. Since then, she has had increasing respiratory distress, productive cough, and chest tightness. No reported fever. PAST MEDICAL HISTORY: Schizophrenia and bipolar disorder, followed by [facility]; overactive bladder; hypertension; hyperlipidemia; drug abuse; and tobacco history. PAST SURGICAL HISTORY: Include history of vaginal deliveries and sections, status post OSORIO by colonoscopy in April [address] Griffith as well as EGD. FAMILY HISTORY: Father with Alzheimer's. Mother with diabetes, breast cancer. Maternal grandmother with heart disease. Maternal aunt with breast, throat, and stomach cancer. SOCIAL HISTORY: She smokes marijuana 1 to 2 times per week. She also uses cocaine approximately one time per week. She states she used to do these daily. She is unemployed. She is disabled, single. She does have 4 kids. She does have a 35-year tobacco history. MEDICATIONS: 1. Coreg 25 p.o. x1. 2. Seroquel 300 two daily. 3. Lexapro 20 daily. 4. Simvastatin 40 daily. ALLERGIES: NONE. REVIEW OF SYSTEMS: As above. PHYSICAL EXAMINATION: VITAL SIGNS: Blood pressure 143/103, pulse 109, respirations 20, and pulse ox 98 on O2. GENERAL: The patient is in loke-au-euwzxvyw respiratory distress. HEENT: Clear. NECK: Supple. HEART: Regular rate and rhythm. LUNGS: With bilateral expiratory wheezes. ABDOMEN: Soft, nontender. EXTREMITIES: No edema. LABORATORY DATA: White count 5.8, H and H of 15 and 45, and platelet 214. Electrolytes normal. Creatinine 0.96. Troponin less than 0.010. BNP 34. Chest x-ray negative. ASSESSMENT: 1. Chronic obstructive pulmonary disease exacerbation secondary to marijuana and cocaine abuse. 2. Marijuana and cocaine abuse, last used 3 days ago. 3. A 35-five year tobacco history. 4. Schizophrenia/bipolar disorder, controlled on Seroquel and Lexapro, followed by [facility]. 5. Hypertension. 6. Hyperlipidemia. 7. Noncompliance with blood pressure medicine. PLAN: 1. DuoNeb treatments q.4. 2. Hydrate. 3. Solu-Medrol 40 IV q.6. 4. Stop Coreg. 5. Restart losartan 100 daily. 6. Continue to discuss tobacco and drug cessation. Job ID: [id number]
[2018-10-19] MEDS: Atorvastatin Calcium 20 MG TAB PO SCH (22:56)
[2018-10-19] MEDS: cloNIDine 0.1 MG TAB PO PRN (23:35)
[2018-10-20] MEDS ORDERED: Aspirin Chewable 81 MG TAB ONE (00:13)
[2018-10-20] MEDS: methylPREDNISolone Sod Succ 40 MG VIAL IVP SCH ×5 (00:23→23:49)
[2018-10-20] MEDS: Sodium Chloride 0.9% 1,000 ML IV SCH ×4 (00:23→23:45)
[2018-10-20] MEDS: cefTRIAXone\\ROCEPHIN 2 GM in Sodium Chloride 0.9% 100 ML IVPB SCH (09:59)
[2018-10-20] MEDS: Enoxaparin Sodium 40 MG/0.4 ML SYRINGE SC SCH (10:29)
[2018-10-20] MEDS: Escitalopram Oxalate 20 mg Tablet PO SCH (11:08)
[2018-10-20] MEDS: Famotidine 20 MG TAB PO SCH ×2 (11:08→20:22)
[2018-10-20] MEDS: Losartan 25 MG TAB PO SCH (11:08)
[2018-10-20 11:27] LABS: #Lymphocytes 0.6 thou/uL (1.20-3.40); #Monocytes 0.3 thou/uL (0.11-0.59); #Neutrophils 12.5 thou/uL (1.40-6.50); %Basophils 0.1 % (0.0-1.0); %Eosinophils 0.1 % (0.0-10.0); %Lymphocytes 4.6 % (21.0-51.0); %Monocytes 2.4 % (0.0-10.0); %Neutrophils 92.8 % (42.0-75.0); Hemoglobin 13.5 g/dL (12.0-16.0); Mean Corpuscular HGB CONC 32.9 g/dL (32.0-36.0); Mean Corpuscular Hemoglobin 29.4 pg (27.0-31.0); Mean Corpuscular Volume 89.1 fL (78.0-98.0); Mean Platelet Volume 8.7 fL (7.4-10.4); Platelet Count 193 thou/uL (130-400); RBC Distribution Width 12.7 % (11.5-14.5); Red Blood Cell (RBC) Count 4.61 mill/uL (4.20-5.40); White Blood Cell (WBC) Count 13.4 thou/uL (4.8-10.8)
--- NOTE | 2018-10-20 11:47 | PRG ---
DATE OF SERVICE: 10/20/2018 SUBJECTIVE: The patient is feeling better. However, she still complains of a significant cough. OBJECTIVE: VITAL SIGNS: Temperature 98.2, pulse 97, respirations 20, and blood pressure 173/81. HEART: Regular rate and rhythm. LUNGS: With bilateral expiratory wheezes. ABDOMEN: Soft. EXTREMITIES: No edema. LABORATORY DATA: None. ASSESSMENT: 1. Chronic obstructive pulmonary disease exacerbation secondary to marijuana and cocaine inhalation. 2. Marijuana and cocaine abuse, last use 4 days prior. 3. A 35-year tobacco history. 4. Schizophrenia/bipolar disorder, stable on Seroquel and Lexapro, followed by [facility]. 5. Hypertension. 6. Hyperlipidemia. 7. Noncompliance with blood pressure medicines. PLAN: 1. Change DuoNeb treatments to q.6. 2. Continue hydration, decrease IV fluids to 75 mL an hour. 3. Continue Solu-Medrol. 4. Add amlodipine 5 at bedtime. 5. Continue to discuss tobacco and drug cessation. Job ID: [id number]
[2018-10-20 11:54] LABS: Anion Gap 14 mmol/L (10-20); BUN (Urea Nitrogen) 16 mg/dL (9.8-20.1); Calc. Creatinine Clearance 85 mL/min (70-130); Calcium 9.7 mg/dL (7.8-10.44); Carbon Dioxide 21 mmol/L (22-29); Chloride 112 mmol/L (98-107); Estimated GFR-MDRD 75; Glucose 152 mg/dL (70-105); Potassium 3.8 mmol/L (3.5-5.1); Sodium 143 mmol/L (136-145)
[2018-10-20] MEDS: Phenergan/Codeine 10-6.25mg/5ml UDCUP PO PRN ×2 (12:07→20:23)
[2018-10-20] MEDS: Atorvastatin Calcium 20 MG TAB PO SCH (20:22)
[2018-10-20] MEDS: Amlodipine 5 MG TAB PO SCH (20:22)
[2018-10-21] MEDS: methylPREDNISolone Sod Succ 40 MG VIAL IVP SCH ×3 (05:55→19:20)
[2018-10-21] MEDS: cefTRIAXone\\ROCEPHIN 2 GM in Sodium Chloride 0.9% 100 ML IVPB SCH (10:36)
[2018-10-21] MEDS: Enoxaparin Sodium 40 MG/0.4 ML SYRINGE SC SCH ×2 (10:37→10:43)
[2018-10-21] MEDS: Escitalopram Oxalate 20 mg Tablet PO SCH (10:37)
[2018-10-21] MEDS: Acetaminophen 325 MG TAB PO PRN (10:37)
[2018-10-21] MEDS: Losartan 25 MG TAB PO SCH (10:38)
[2018-10-21] MEDS: Famotidine 20 MG TAB PO SCH ×2 (10:39→21:06)
[2018-10-21] MEDS: Hydrochlorothiazide 25 MG TAB PO SCH (10:39)
--- NOTE | 2018-10-21 10:45 | PRG ---
DATE OF SERVICE: 10/21/2018 SUBJECTIVE: The patient continues to improve slowly. OBJECTIVE: VITAL SIGNS: Temperature 98.0, pulse 93, respirations 16, pulse ox 92% on 1.5 L, and blood pressure 177/90. HEART: Regular rate and rhythm. LUNGS: Still with coarse expiratory wheezes improving slowly. ABDOMEN: Soft. EXTREMITIES: No edema. LABORATORY DATA: None. ASSESSMENT: 1. Chronic obstructive pulmonary disease exacerbation secondary to marijuana and cocaine inhalation. 2. Marijuana and cocaine abuse. Last use 4 days prior to admission. 3. A 35-year tobacco history. 4. Schizophrenia/bipolar disorder, stable on Seroquel and Lexapro, followed by [facility]. 5. Hypertension. 6. Hyperlipidemia. 7. Noncompliance with blood pressure medicines. PLAN: 1. Continue DuoNeb treatments. 2. Continue hydration. 3. Continue Solu-Medrol. 4. Add hydrochlorothiazide 25 p.o. q.a.m. 5. Discussed tobacco and drug cessation. 6. Hopefully can discharge in the next 1 to 2 days. Job ID: [id number]
[2018-10-21] MEDS: Phenergan/Codeine 10-6.25mg/5ml UDCUP PO PRN ×2 (11:51→21:07)
[2018-10-21] MEDS: cloNIDine 0.1 MG TAB PO PRN (15:49)
[2018-10-21] MEDS: Amlodipine 5 MG TAB PO SCH (21:05)
[2018-10-21] MEDS: Atorvastatin Calcium 20 MG TAB PO SCH (21:06)
[2018-10-22] MEDS: methylPREDNISolone Sod Succ 40 MG VIAL IVP SCH ×2 (00:52→06:26)
[2018-10-22] MEDS: cloNIDine 0.1 MG TAB PO PRN (05:24)
[2018-10-22] MEDS: Sodium Chloride 0.9% 1,000 ML IV SCH ×2 (06:25→07:52)
[2018-10-22 06:52] LABS: #Monocytes 0.4 thou/uL (0.11-0.59); #Neutrophils 11.6 thou/uL (1.40-6.50); %Basophils 0.3 % (0.0-1.0); %Eosinophils 0.3 % (0.0-10.0); %Lymphocytes 7.6 % (21.0-51.0); %Monocytes 2.7 % (0.0-10.0); %Neutrophils 89.1 % (42.0-75.0); Hemoglobin 15.1 g/dL (12.0-16.0); Mean Corpuscular HGB CONC 33.5 g/dL (32.0-36.0); Mean Corpuscular Hemoglobin 29.9 pg (27.0-31.0); Mean Corpuscular Volume 89.5 fL (78.0-98.0); Mean Platelet Volume 9.2 fL (7.4-10.4); Platelet Count 208 thou/uL (130-400); RBC Distribution Width 12.9 % (11.5-14.5); Red Blood Cell (RBC) Count 5.03 mill/uL (4.20-5.40)
[2018-10-22 07:12] LABS: Anion Gap 15 mmol/L (10-20); BUN (Urea Nitrogen) 14 mg/dL (9.8-20.1); Calc. Creatinine Clearance 88 mL/min (70-130); Calcium 9.9 mg/dL (7.8-10.44); Carbon Dioxide 26 mmol/L (22-29); Chloride 104 mmol/L (98-107); Estimated GFR-MDRD 78; Glucose 136 mg/dL (70-105); Potassium 4.1 mmol/L (3.5-5.1); Sodium 141 mmol/L (136-145)
[2018-10-22] MEDS ORDERED: Sodium Chloride 0.9% 1,000 ML IV SCH (07:28)
[2018-10-22] MEDS: cefTRIAXone\\ROCEPHIN 2 GM in Sodium Chloride 0.9% 100 ML IVPB SCH (08:19)
[2018-10-22] MEDS: predniSONE 20 MG TAB PO SCH ×2 (08:20→16:45)
[2018-10-22] MEDS: Hydrochlorothiazide 25 MG TAB PO SCH (08:20)
[2018-10-22] MEDS: Famotidine 20 MG TAB PO SCH ×2 (08:20→21:26)
[2018-10-22] MEDS: Losartan 25 MG TAB PO SCH (08:21)
[2018-10-22] MEDS: Enoxaparin Sodium 40 MG/0.4 ML SYRINGE SC SCH (08:21)
[2018-10-22] MEDS: cloNIDine 0.1 MG TAB PO SCH ×2 (08:21→21:25)
[2018-10-22] MEDS: Escitalopram Oxalate 20 mg Tablet PO SCH (08:22)
--- NOTE | 2018-10-22 10:18 | PQF ---
TIFFANIE HAWLEY, HANY Rivera JR, MD [id number] [address] [place] [address] [id number] CLINICAL DOCUMENTATION IMPROVEMENT CLARIFICATION FORM: ICD-10 Updated PLEASE DO AN ADDENDUM TO THE PROGRESS NOTE WITH ANY DOCUMENTATION UPDATES OR ADDITIONS AND CARRY THROUGH TO DC SUMMARY. THANK YOU. DATE: 10/22/18 ATTN: DR Kimmie KLEIN Please exercise your independent, professional judgment in responding to the clarification form. Clinical indicators are provided on the bottom of this form for your review. Please check appropriate box(s): [ x ] Acute Respiratory Failure: [ x] with Hypoxia[ ] with Hypercapnia [ ] Acute Respiratory Failure due to: (etiology) [ ] Other diagnosis [ ] Unable to determine In addition, please specify: Present on Admission (POA): [ x ] Yes [ ] No [ ] Unable to determine For continuity of documentation, please document condition throughout progress notes and discharge summary. Thank You. CLINICAL INDICATORS - SIGNS / SYMPTOMS / LABS 3/ ED: R 22-48, RA>BIPAP>4L> 2L ( NO HISTORY OF O2 USE AT HOME) ER MD: DIFFUSE WHEEZING NURSING ASSESSMENT- SEVERE RESP DISTRESS 3/4 H&P (LATOYA) PHYSICAL EXAM: GENERAL - THE PATIENT IS IN MILD TO MODERATE RESPIRATORY DISTRESS RISK: TOBACCO ABUSE DRUG/POLYSUBSTANCE ABUSE COPD EXACERBATION TREATMENT: SUPPLEMENTAL O2 (3/4-PRESENT) RESPIRATORY TREATMENTS ( DUONEBS 3/4- PRESENT) THANK YOU! BHASKAR (This form is maintained as a part of the permanent medical record) 2014 [employer]. All Rights Reserved [email or web address] [phone] MTDD
--- NOTE | 2018-10-22 10:28 | CON ---
DATE OF CONSULTATION: 10/22/2018 SUBJECTIVE: The patient is markedly improved, but still with cough. She is feeling much better this morning. OBJECTIVE: VITAL SIGNS: Temperature 97.8, pulse 68, respirations 16, blood pressure 180/97, pulse ox 88, still on room air. HEART: Regular rate and rhythm. LUNGS: With occasional expiratory rhonchi. ABDOMEN: Soft. EXTREMITIES: No edema. LABORATORY DATA: White count 13.0, H and H 15 and 45. Electrolytes normal. Creatinine 0.9, BUN 14. ASSESSMENT: 1. Chronic obstructive pulmonary disease exacerbation secondary to marijuana and cocaine inhalation. 2. Marijuana and cocaine abuse. 3. A 35 year tobacco history. 4. Schizophrenia/bipolar disorder. 5. Hypertension. 6. Hyperlipidemia. 7. Noncompliance with blood pressure medicines. PLAN: 1. Add clonidine 0.1 mg p.o. b.i.d. to regimen. 2. Decrease IV fluids. 3. Change Solu-Medrol to prednisone 20 p.o. b.i.d. and continue to follow. Job ID: [id number]
[2018-10-22] MEDS: Acetaminophen 325 MG TAB PO PRN (14:14)
[2018-10-22] MEDS: Amlodipine 5 MG TAB PO SCH (21:25)
[2018-10-22] MEDS: Atorvastatin Calcium 20 MG TAB PO SCH (21:26)
[2018-10-22] MEDS: Phenergan/Codeine 10-6.25mg/5ml UDCUP PO PRN (21:29)
[2018-10-23 08:00] VITALS: TEMP 98.6
[2018-10-23] MEDS: cloNIDine 0.1 MG TAB PO SCH (09:14)
[2018-10-23] MEDS: predniSONE 20 MG TAB PO SCH (09:15)
[2018-10-23] MEDS: Famotidine 20 MG TAB PO SCH (09:15)
[2018-10-23] MEDS: Hydrochlorothiazide 25 MG TAB PO SCH (09:15)
[2018-10-23] MEDS: Escitalopram Oxalate 20 mg Tablet PO SCH (09:16)
[2018-10-23] MEDS: Losartan 25 MG TAB PO SCH (09:16)
[2018-10-23] MEDS: cefTRIAXone\\ROCEPHIN 2 GM in Sodium Chloride 0.9% 100 ML IVPB SCH (09:18)
[2018-10-23] MEDS: Enoxaparin Sodium 40 MG/0.4 ML SYRINGE SC SCH (09:18)
[2018-10-23 09:20] VITALS: BP 141/84
--- NOTE | 2018-10-23 09:26 | DIS ---
DATE OF ADMISSION: 10/19/2018 DATE OF DISCHARGE: 10/23/2018 DISCHARGE DIAGNOSES: 1. Acute respiratory failure with hypoxemia. 2. Chronic obstructive pulmonary disease exacerbation. 3. Marijuana and cocaine abuse. 4. Thirty-five year tobacco history. 5. Schizophrenia/bipolar disorder. 6. Hypertension. 7. Hyperlipidemia. 8. Noncompliance. DISCHARGE MEDICATIONS: 1. Norvasc 5 mg p.o. at bedtime. 2. Clonidine 0.1 p.o. b.i.d. 3. Lexapro 20 p.o. daily. 4. Losartan/hydrochlorothiazide 100/25 p.o. q.a.m. 5. Neb treatments p.r.n. 6. Prednisone taper #30. 7. Codeine cough medicine 120 mL. 8. Seroquel 150 p.o. b.i.d. 9. Cefdinir 300 p.o. b.i.d. 10. Aspirin 81 daily. 11. Simvastatin 40 p.o. daily. FOLLOWUP: Follow up with Dr. Helder Bustamante in 1 week. BRIEF HISTORY: This is a 58-year-old black female with chronic marijuana and cocaine use, who is being admitted for respiratory distress. The patient has a long history of schizophrenia and bipolar disorder, followed by [facility]. She presents with a 3-day history of increasing productive cough. Her symptoms became significantly worse the night prior to admission. She was hospitalized with similar episode recently. She was found to be tachypneic and moderate respiratory distress. She was actually given BiPAP initially in the emergency room. She is well aware of the dangers of her drug use. HOSPITAL COURSE: The patient was admitted. She was put on neb treatments. She was put on Solu-Medrol 40 IV q.6 as well as Rocephin and neb treatments q.4 hours. Over several days, she improved markedly. She still with a cough and occasional expiratory wheeze. However, she is significantly better. She has been to wean to room air O2. She will follow up in 1 week. I continually encouraged her to quit smoking and doing recreational drugs. She states that she does marijuana daily and cocaine 1 to 2 times per week. Her antihypertensives were tapered. Her blood pressures have done remarkably well. She will be discharged on above medications and will follow up in the office in 1 week. Job ID: [id number]
== END 2018-10-23 10:35 | disposition home or self-care (01) | DRG 189 ==
LOC: ERS 04:31 → 3SE 07:35
PROVIDERS: ADMIT Family Medicine; ATTEND Family Medicine
PROC: 5A09357 Assistance with Respiratory Ventilation, Less than 24 Consecutive Hours, Continuous Positive Airway Pressure (ICD-10-PCS; principal; 2018-10-19)
DX: J96.01 Acute respiratory failure with hypoxia (principal); J44.1 Chronic obstructive pulmonary disease with (acute) exacerbation; F20.9 Schizophrenia, unspecified; I10 Essential (primary) hypertension; E78.5 Hyperlipidemia, unspecified; F31.9 Bipolar disorder, unspecified; F12.188 Cannabis abuse with other cannabis-induced disorder; F14.19 Cocaine abuse with unspecified cocaine-induced disorder; F17.210 Nicotine dependence, cigarettes, uncomplicated; Z91.14 Patient's other noncompliance with medication regimen; Z79.899 Other long term (current) drug therapy
CPT/HCPCS: 36415; 71045; 80048; 80053; 82550; 83880; 84484; 85025; 93005; 94640; 94660; 94760; 96365; 96375; J0696; J1650; J2920; J2930; J3475; J7050; J7620

== ENCOUNTER 2019-02-02 15:55 | Emergency (ER) | payer OTHER ==
--- NOTE | 2019-02-02 16:43 | RAD ---
XR Ankle Rt 3 View STANDARD HISTORY: Injury, right ankle pain FINDINGS: No fracture or dislocation is identified. The ankle mortise is maintained. A posterior calcaneal spur is present.
--- NOTE | 2019-02-02 16:44 | RAD ---
Exam:Right foot 3 views HISTORY: Fall. Pain. COMPARISON: None FINDINGS: Degenerative changes of the first metatarsophalangeal joint space with mild hallux valgus d eformity. No fracture. No cortical irregularity or periosteal reaction. Lisfranc alignment is maintained. IMPRESSION: Degenerative changes involving the first MTP joint. No fracture.
[2019-02-02] MEDS ORDERED: Ketorolac Tromethamine 30 MG/ML VIAL ONE (16:50)
== END 2019-02-02 17:25 | disposition home or self-care (01) ==
LOC: ERS 15:55
DX: M79.671 Pain in right foot (principal); F32.9 Major depressive disorder, single episode, unspecified; F20.9 Schizophrenia, unspecified; Z87.891 Personal history of nicotine dependence; I10 Essential (primary) hypertension; Z79.899 Other long term (current) drug therapy
CPT/HCPCS: 96372; J1885

== ENCOUNTER 2019-04-02 00:42 | Observation (INO) | payer OTHER ==
[2019-04-02 01:35] LABS: #Basophils 0.1 thou/uL (0.0-0.2); #Eosinphils 0.3 thou/uL (0.0-0.7); #Lymphocytes 1.7 thou/uL (1.20-3.40); #Monocytes 0.4 thou/uL (0.11-0.59); #Neutrophils 2.6 thou/uL (1.40-6.50); %Basophils 1.1 % (0.0-1.0); %Eosinophils 5.4 % (0.0-10.0); %Lymphocytes 34.3 % (21.0-51.0); %Monocytes 7.4 % (0.0-10.0); %Neutrophils 51.7 % (42.0-75.0); Hemoglobin 14.9 g/dL (12.0-16.0); Mean Corpuscular HGB CONC 35.6 g/dL (32.0-36.0); Mean Corpuscular Hemoglobin 31.7 pg (27.0-31.0); Mean Corpuscular Volume 88.9 fL (78.0-98.0); Mean Platelet Volume 8.5 fL (7.4-10.4); Platelet Count 186 thou/uL (130-400); RBC Distribution Width 11.9 % (11.5-14.5); Red Blood Cell (RBC) Count 4.71 mill/uL (4.20-5.40)
[2019-04-02 01:42] LABS: INR-International Normal Ratio 0.9; PTT 25.8 SEC (22.9-36.1); Prothrombin Time 12.4 SEC (12.0-14.7)
[2019-04-02 01:56] LABS: ALT (SGPT) Less than 7 U/L (8-55); AST (SGOT) 20 U/L (5-34); Albumin 4.5 g/dL (3.5-5.0); Alcohol 88 mg/dL (Less than 10); Alkaline Phosphatase 75 U/L (40-150); Anion Gap 20 mmol/L (10-20); BUN (Urea Nitrogen) 25 mg/dL (9.8-20.1); Bilirubin, Total 0.5 mg/dL (0.2-1.2); Calc. Creatinine Clearance 0 mL/min (70-130); Calcium 9.9 mg/dL (7.8-10.44); Carbon Dioxide 23 mmol/L (22-29); Chloride 94 mmol/L (98-107); Estimated GFR-MDRD 39; Globulin 2.5 g/dL (2.4-3.5); Glucose 99 mg/dL (70-105); Lipase 20 U/L (8-78); Sodium 134 mmol/L (136-145)
[2019-04-02 02:02] LABS: Potassium 2.5 mmol/L (3.5-5.1)
[2019-04-02] MEDS ORDERED: Pot Chloride/Pot Bicarb/Cit Ac 25 mEq Effervescent Tablet ONE ×2 (02:04)
[2019-04-02 02:41] LABS: Bilirubin Negative (Negative); Blood, Urine Negative (Negative); Clarity Clear (Clear); Glucose, Urine (Dipstick) Normal (Negative); Leukocyte Negative Leu/uL (Negative); Nitrite Negative (Negative); Protein, Urine (Dipstick) Negative (Neg-Trace); Urobilinogen Normal mg/dL (Less than 2)
[2019-04-02 06:24] LABS: Lactic Acid 1.1 mmol/L (0.5-2.2)
--- NOTE | 2019-04-02 07:59 | CT ---
PRELIMINARY REPORT/[facility]/EMERGENCY AFTER HOURS PROCEDURE: EXAM: CT Abdomen and Pelvis With Contrast EXAM DATE/TIME: 04/02/2019 2:10 AM CLINICAL HISTORY: 58 years old, female; Abdominal pain; Acute; Patient HX: F58 presents to ED via EMS after fall C/O we akness and lightheadedness. PT denies parasthesias. PT reports cp x 3-4 days with onset of weakness and dizziness. Symptoms are exacerbated with movement. PT denies vaginal bleeding, diarrhea, abd pain . PT denies loc or head injury. PT drinks approximately 4 beers daily. PT denies swelling to ble. EMS reports initial BP 84/48, repeat BP systolic of 119, BP in ED 87/56. Pmhx: A-fib, copd, asthma, H TN, hyperlipidemia, diverticulitis TECHNIQUE: Imaging protocol: Axial computed tomography images of the abdomen and pelvis with intravenous contrast. COMPARISON: No relevant prior studies available. FINDINGS: Lungs: Bibasilar atelectasis and/or scarring. Liver: Normal. Gallbladder and bile ducts: Normal. Pancreas: Normal. Spleen: Normal. Adrenals: Normal. Kidneys and ureters: Normal. Stomach and bowel: Colonic diverticulosis. Appendix: Appendix normal. Intraperitoneal space: Normal. No free air. No significant fluid collection. Vasculature: Phleboliths within the pelvis. Lymph nodes: Normal. No enlarged lymph nodes. Bladder: Unremarkable as visualized. Reproductive: Uterus is surgically absent. Bones/joints: No acute abnormality. Soft tissues: Normal. IMPRESSION: No acute abdominal or pelvic abnormality. Thank you for allowing us to participate in the care of your patient. Dictated and Authenticated by: Gigi Razo MD 04/02/2019 3:47 AM Central Time ([place] & [place]) FINAL REPORT EMERGENT AFTER HOURS CT ABDOMEN AND PELVIS WITH IV CONTRAST: HISTORY: Hypotension. Weakness and lightheadedness after a fall. Chest pain for 3 to 4 days. COMPARISON: 10/21/2015. FINDINGS: 1. No acute findings are seen in the abdomen or pelvis. 2. No CT evidence of appendicitis. 3. Vascular calcifications in the abdominal aorta and iliac arteries. 4. Colonic diverticulosis. 5. Hysterectomy. 6. Degenerative changes of the spine which have progressed at the L3-4 level. 7. Findings are agreement with the report by [facility]. Transcribed Date/Time: 04/02/2019 9:24 AM
--- NOTE | 2019-04-02 08:02 | RAD ---
EXAM: CHEST ONE VIEW HISTORY: Generalized weakness. Post fall. COMPARISON: 10/19/2018. FINDINGS: The cardiac silhouette and pulmonary vasculature is within normal limits. The lungs are clear. Degene rative changes are seen in the spine. Chest is stable compared to prior study. IMPRESSION: No acute cardiopulmonary process.
[2019-04-02] MEDS ORDERED: Acetaminophen 325 MG TAB PO PRN (08:25)
[2019-04-02] MEDS ORDERED: Ondansetron PF 4 MG/2 ML Vial IVP PRN (08:25)
[2019-04-02] MEDS ORDERED: Potassium Chloride 20 MEQ TAB PO SCH (08:45)
--- NOTE | 2019-04-02 09:16 | HP ---
HISTORY OF PRESENT ILLNESS: This is a 58-year-old black female with history of bipolar disorder and schizophrenia, who presents with dizziness. The patient presents with a 3-day history of nausea without vomiting. No complaints of any fever or diarrhea. She was very lightheaded and presented to the emergency room. She was found to have an alcohol level of 88. She stated she had one beer, then later said she had one beer and 2 rum drinks. She does drink quite a bit of alcohol by history. She did quit smoking cigarettes in January, but she continues to smoke cocaine. This morning, she is feeling better than when she came in. No IV fluids were given since admission this morning. Lactic acid was found to be elevated. The patient also has a history of asthma from her long history of smoking. PAST MEDICAL HISTORY: Hypertension, hyperlipidemia, bipolar disorder with schizophrenia and paranoia followed by [facility], and overactive bladder. PAST SURGICAL HISTORY: Spontaneous vaginal delivery x1, x1, hysterectomy, colonoscopy in 2013, and EGD in 2013. FAMILY HISTORY: Father with Alzheimer's. Mother with diabetes and breast cancer. Paternal grandmother with heart disease. Maternal aunt with breast, throat, and stomach cancer. SOCIAL HISTORY: She is single. She quit smoking in January of 2019. She does have 4 kids. She does have a 1 pack per day x35 year tobacco history. MEDICATIONS: Seroquel 300 daily, albuterol p.r.n., simvastatin 40 daily, Lexapro 20 daily, and clonidine b.i.d. ALLERGIES: NONE. REVIEW OF SYSTEMS: As above. PHYSICAL EXAMINATION: VITAL SIGNS: Temperature 98.3, pulse 83, respirations 16, pulse ox 93%, and blood pressure 110/73. GENERAL: No acute distress this morning. Does have a slight headache. HEENT: Clear. HEART: Regular rhythm. LUNGS: Clear. ABDOMEN: Soft. EXTREMITIES: With no edema. LABORATORY DATA: White count 5.0, H and H of 14 and 41. Sodium 134, potassium 2.5, chloride 94, creatinine 1.65, and BUN 25. Lactic acid 2.4 to 1.1. Troponin less than 0.010. Lipase 20. IMAGING DATA: CT of the abdomen and pelvis negative. Chest x-ray negative. ASSESSMENT: 1. Dizziness. 2. Dehydration. 3. Acute kidney injury. 4. Ethanol intoxication. 5. Hypertension. 6. Hyperlipidemia. 7. Bipolar disorder with schizophrenia. 8. Asthma exacerbation. 9. Bronchiolitis. PLAN: 1. Rehydrate with normal saline and add potassium as well as give oral potassium 20 p.o. b.i.d. 2. Serial CBC and comprehensive metabolic panel. 3. Solu-Medrol 20 q.8 as well as Levaquin 500 daily. 4. Recheck labs in the a.m. 5. I suspect that the patient may have been drinking quite a bit of alcohol over the past day or two. Hopefully with hydration, she will do well. She is already improving. Job ID: [id number]
[2019-04-02 09:27] LABS: #Basophils 0.1 thou/uL (0.0-0.2); #Eosinphils 0.3 thou/uL (0.0-0.7); #Lymphocytes 2.1 thou/uL (1.20-3.40); #Monocytes 0.4 thou/uL (0.11-0.59); #Neutrophils 1.8 thou/uL (1.40-6.50); %Basophils 1.6 % (0.0-1.0); %Eosinophils 6.5 % (0.0-10.0); %Lymphocytes 44.2 % (21.0-51.0); %Monocytes 8.5 % (0.0-10.0); %Neutrophils 39.4 % (42.0-75.0); Hemoglobin 15.5 g/dL (12.0-16.0); Mean Corpuscular HGB CONC 35.2 g/dL (32.0-36.0); Mean Corpuscular Hemoglobin 30.9 pg (27.0-31.0); Mean Corpuscular Volume 87.8 fL (78.0-98.0); Mean Platelet Volume 8.9 fL (7.4-10.4); Platelet Count 198 thou/uL (130-400); RBC Distribution Width 11.9 % (11.5-14.5); White Blood Cell (WBC) Count 4.6 thou/uL (4.8-10.8)
[2019-04-02] MEDS: Sodium Chloride 0.9% 1,000 ML IV SCH ×2 (09:30→17:40)
[2019-04-02] MEDS: Escitalopram Oxalate 20 mg Tablet PO SCH (09:31)
[2019-04-02] MEDS: Aspirin 81 mg Enteric Coated Tablet PO SCH (09:31)
[2019-04-02] MEDS: Enoxaparin Sodium 40 MG/0.4 ML SYRINGE SC SCH (09:32)
[2019-04-02] MEDS: methylPREDNISolone Sod Succ 40 MG VIAL IVP SCH ×2 (09:32→17:40)
[2019-04-02] MEDS: Famotidine/PF 20 mg/2ml Vial SLOW IVP SCH ×2 (09:32→20:45)
[2019-04-02 09:54] LABS: ALT (SGPT) 7 U/L (8-55); AST (SGOT) 19 U/L (5-34); Albumin 4.7 g/dL (3.5-5.0); Alkaline Phosphatase 78 U/L (40-150); Anion Gap 14 mmol/L (10-20); BUN (Urea Nitrogen) 19 mg/dL (9.8-20.1); Bilirubin, Total 0.9 mg/dL (0.2-1.2); Calc. Creatinine Clearance 0 mL/min (70-130); Carbon Dioxide 30 mmol/L (22-29); Chloride 97 mmol/L (98-107); Estimated GFR-MDRD 59; Globulin 2.5 g/dL (2.4-3.5); Glucose 84 mg/dL (70-105); Potassium 2.9 mmol/L (3.5-5.1); Protein, Total 7.2 g/dL (6.0-8.3); Sodium 138 mmol/L (136-145)
[2019-04-02] MEDS: Amlodipine 5 MG TAB PO SCH (10:16)
[2019-04-02] MEDS: Losartan/Hydrochlorothiazide 100 mg/25 mg Tablet PO SCH (10:17)
[2019-04-02] MEDS: cloNIDine 0.1 MG TAB PO SCH ×2 (10:17→20:45)
[2019-04-02 11:39] VITALS: BMI 29.0
[2019-04-02] MEDS ORDERED: ISOVUE-370 76%-LOCM 1 ML ONE (16:05)
[2019-04-02] MEDS: Potassium Chloride 20 MEQ TAB PO SCH (17:40)
[2019-04-02] MEDS ORDERED: Atorvastatin Calcium 20 MG TAB PO SCH (21:00)
[2019-04-03] MEDS: methylPREDNISolone Sod Succ 40 MG VIAL IVP SCH ×2 (01:45→09:13)
[2019-04-03] MEDS: Sodium Chloride 0.9% 1,000 ML IV SCH (01:51)
[2019-04-03 08:49] LABS: ALT (SGPT) 9 U/L (8-55); AST (SGOT) 13 U/L (5-34); Alkaline Phosphatase 68 U/L (40-150); Anion Gap 13 mmol/L (10-20); BUN (Urea Nitrogen) 15 mg/dL (9.8-20.1); Bilirubin, Total 0.4 mg/dL (0.2-1.2); Calc. Creatinine Clearance 87 mL/min (70-130); Carbon Dioxide 23 mmol/L (22-29); Chloride 106 mmol/L (98-107); Estimated GFR-MDRD 77; Globulin 2.3 g/dL (2.4-3.5); Glucose 165 mg/dL (70-105); Protein, Total 6.3 g/dL (6.0-8.3); Sodium 139 mmol/L (136-145)
[2019-04-03] MEDS: Potassium Chloride 20 MEQ TAB PO SCH (08:50)
[2019-04-03] MEDS: Escitalopram Oxalate 20 mg Tablet PO SCH (08:51)
[2019-04-03] MEDS: Aspirin 81 mg Enteric Coated Tablet PO SCH (08:51)
[2019-04-03] MEDS: Losartan/Hydrochlorothiazide 100 mg/25 mg Tablet PO SCH (08:51)
[2019-04-03] MEDS: cloNIDine 0.1 MG TAB PO SCH (08:51)
[2019-04-03] MEDS: Amlodipine 5 MG TAB PO SCH (08:51)
[2019-04-03 09:01] LABS: #Lymphocytes 0.8 thou/uL (1.20-3.40); #Monocytes 0.3 thou/uL (0.11-0.59); #Neutrophils 9.9 thou/uL (1.40-6.50); %Basophils 0.1 % (0.0-1.0); %Eosinophils 0.2 % (0.0-10.0); %Lymphocytes 6.9 % (21.0-51.0); %Monocytes 2.7 % (0.0-10.0); %Neutrophils 90.2 % (42.0-75.0); Hemoglobin 14.6 g/dL (12.0-16.0); Mean Corpuscular HGB CONC 33.5 g/dL (32.0-36.0); Mean Corpuscular Hemoglobin 30.3 pg (27.0-31.0); Mean Corpuscular Volume 90.4 fL (78.0-98.0); Mean Platelet Volume 9.3 fL (7.4-10.4); Platelet Count 184 thou/uL (130-400); RBC Distribution Width 11.9 % (11.5-14.5); Red Blood Cell (RBC) Count 4.81 mill/uL (4.20-5.40)
[2019-04-03] MEDS: Enoxaparin Sodium 40 MG/0.4 ML SYRINGE SC SCH ×2 (09:13→09:21)
[2019-04-03] MEDS: Famotidine/PF 20 mg/2ml Vial SLOW IVP SCH (09:13)
[2019-04-03 12:45] VITALS: BP 109/72; TEMP 98.4
--- NOTE | 2019-04-03 22:28 | DIS ---
DATE OF ADMISSION: 04/02/2019 DATE OF DISCHARGE: 04/03/2019 ADMITTING DIAGNOSES: Acute renal injury, alcohol intoxication, dizziness, dehydration, hypokalemia, hypertension, hyperlipidemia, bipolar with schizophrenia history, asthma exacerbation, and bronchitis. DISCHARGE DIAGNOSES: Acute renal injury, alcohol intoxication, dizziness, dehydration, hypokalemia, hypertension, hyperlipidemia, bipolar with schizophrenia history, asthma exacerbation, and bronchitis. HOSPITAL COURSE: The patient is a 58-year-old black female, patient of Dr. Bustamante, well known to him, who came in with an alcohol level of 88, admitting to several rum drinks prior to admission, also admitting to cocaine use couple of days prior to admission. Overnight, the patient has essentially been uneventful. Her initial potassium was 2.5 and today, the potassium is up to 3.0. She has had a small what she describes as a fleeting kind of chest pain, left upper side. DuoNeb was given, seemed to help the pain. So, the plan is to discharge home to continue on the Seroquel 300 mg daily, Lexapro 20 mg daily, simvastatin 40 mg daily. She is on p.r.n. clonidine and p.r.n. albuterol. Then, she will follow up with Dr. Bustamante, she already has an appointment set for 04/12, as he is out this week. Job ID: [id number]
--- NOTE | 2019-04-10 11:50 | EKG ---
Test Reason : WEAKNESS Blood Pressure : / mmHG Vent. Rate : 094 BPM Atrial Rate : 094 BPM P-R Int : 118 ms QRS Dur : 092 ms QT Int : 484 ms P-R-T Axes : 026 -12 061 degrees QTc Int : 605 ms Normal sinus rhythm Inferior infarct , age undetermined Prolonged QT Abnormal ECG Confirmed by KATHERIN LARA M.D. ([id number]), editorial project manager TRACY DAVIS ([id number]) on 04/10/2019 11:49:51 AM Referred By: JANE Confirmed By:KATHERIN LARA M.D.
== END 2019-04-03 14:04 | disposition home or self-care (01) ==
LOC: ERS 00:42 → SJJU 04:21
PROVIDERS: ADMIT Family Medicine; ATTEND Family Medicine
DX: N17.9 Acute kidney failure, unspecified (principal); F10.129 Alcohol abuse with intoxication, unspecified; E86.0 Dehydration; E87.6 Hypokalemia; I10 Essential (primary) hypertension; E78.5 Hyperlipidemia, unspecified; F31.9 Bipolar disorder, unspecified; F20.9 Schizophrenia, unspecified; J45.901 Unspecified asthma with (acute) exacerbation; J21.9 Acute bronchiolitis, unspecified; F17.210 Nicotine dependence, cigarettes, uncomplicated; F14.11 Cocaine abuse, in remission; I48.91 Unspecified atrial fibrillation; Z79.899 Other long term (current) drug therapy; Y90.4 Blood alcohol level of 80-99 mg/100 ml
CPT/HCPCS: 36415; 36416; 71045; 74177; 80053; 80307; 81003; 83605; 83690; 84484; 85025; 85610; 85730; 86850; 86900; 86901; 93005; 94760; 96360; 96361; 96365; 96372; 96375; 96376; G0378; J1650; J1956; J2920; Q9966; S0028

== ENCOUNTER 2019-07-05 03:56 | Emergency (ER) | payer OTHER ==
[2019-07-05] MEDS ORDERED: Albuterol Sulfate 2.5 mg/3 ml Neb ONE ×2 (04:06→07:16)
[2019-07-05 04:52] LABS: #Basophils 0.1 thou/uL (0.0-0.2); #Eosinphils 0.3 thou/uL (0.0-0.7); #Lymphocytes 1.4 thou/uL (1.20-3.40); #Monocytes 0.5 thou/uL (0.11-0.59); #Neutrophils 4.3 thou/uL (1.40-6.50); %Basophils 0.9 % (0.0-1.0); %Eosinophils 4.3 % (0.0-10.0); %Lymphocytes 21.9 % (21.0-51.0); %Monocytes 7.4 % (0.0-10.0); %Neutrophils 65.5 % (42.0-75.0); Hemoglobin 16.4 g/dL (12.0-16.0); Mean Corpuscular HGB CONC 34.4 g/dL (32.0-36.0); Mean Corpuscular Hemoglobin 30.7 pg (27.0-31.0); Mean Corpuscular Volume 89.2 fL (78.0-98.0); Mean Platelet Volume 8.9 fL (7.4-10.4); Platelet Count 166 thou/uL (130-400); RBC Distribution Width 11.9 % (11.5-14.5); Red Blood Cell (RBC) Count 5.33 mill/uL (4.20-5.40); White Blood Cell (WBC) Count 6.6 thou/uL (4.8-10.8)
[2019-07-05 06:42] LABS: ALT (SGPT) 12 U/L (8-55); AST (SGOT) 20 U/L (5-34); Albumin 4.8 g/dL (3.5-5.0); Alkaline Phosphatase 87 U/L (40-110); Anion Gap 12 mmol/L (10-20); BUN (Urea Nitrogen) 12 mg/dL (9.8-20.1); Bilirubin, Total 0.9 mg/dL (0.2-1.2); Calc. Creatinine Clearance 0 mL/min (70-130); Carbon Dioxide 27 mmol/L (22-29); Chloride 106 mmol/L (98-107); Estimated GFR-MDRD 69; Globulin 2.7 g/dL (2.4-3.5); Glucose 120 mg/dL (70-105); Potassium 3.3 mmol/L (3.5-5.1); Protein, Total 7.5 g/dL (6.0-8.3); Sodium 142 mmol/L (136-145)
--- NOTE | 2019-07-05 08:28 | RAD ---
PORTABLE UPRIGHT FRONTAL CHEST RADIOGRAPH: DATE: 07/05/2019. COMPARISON: 04/02/2019. HISTORY: COPD, dyspnea. FINDINGS: There is no pneumothorax, pleural fluid, focal consolidation, or alveolar edema. Heart and mediastin al contours are unremarkable. IMPRESSION: No acute findings. POS: [facility]
== END 2019-07-05 06:58 | disposition home or self-care (01) ==
LOC: ERS 03:56
DX: J44.1 Chronic obstructive pulmonary disease with (acute) exacerbation (principal); I49.9 Cardiac arrhythmia, unspecified; I48.91 Unspecified atrial fibrillation; E78.5 Hyperlipidemia, unspecified; I10 Essential (primary) hypertension; F32.9 Major depressive disorder, single episode, unspecified; F20.9 Schizophrenia, unspecified; Z87.891 Personal history of nicotine dependence; Z79.899 Other long term (current) drug therapy
CPT/HCPCS: 36415; 71045; 80053; 83880; 84484; 85025; 87804; 93005; 94640; J7611

== ENCOUNTER 2019-07-06 12:02 | Outpatient (CLI) | payer OTHER ==
--- NOTE | 2019-07-06 15:21 | MMO ---
Bilateral MAMMO Bilat Screen [facility]DI. CLINICAL HISTORY: Patient is 58 years old and is seen for screening. The patient has the following family history of breast cancer: mother and maternal aunt. The patient has no personal history of cancer. VIEWS: The views performed were: bilateral craniocaudal and bilateral mediolateral oblique. FILMS COMPARED: The present examination has been compared to a prior imaging study performed at [facility] on 04/12/2010. This study has been interpreted with the assistance of computer-aided detection. MAMMOGRAM FINDINGS: There are scattered fibroglandular densities. There are no suspicious masses, suspicious calcifications, or new areas of architectural distortion. IMPRESSION: THERE IS NO MAMMOGRAPHIC EVIDENCE OF MALIGNANCY. A ROUTINE FOLLOW-UP MAMMOGRAM IN 1 YEAR IS RECOMMENDED. ACR BI-RADS Category 1 - Negative MAMMOGRAPHY NOTE: 1. A negative mammogram report should not delay a biopsy if a dominant of clinically suspicious mass is present. 2. Approximately 10% to 15% of breast cancers are not detected by mammography. 3. Adenosis and dense breasts may obscure an underlying neoplasm. Reported by: JAVIER CASANOVA MD Electonically Signed: [id number]
== END 2019-07-06 12:03 | disposition home or self-care (01) ==
LOC: BICMAMMO 12:02
PROVIDERS: ATTEND Family Medicine
DX: Z12.31 Encounter for screening mammogram for malignant neoplasm of breast (principal); Z80.3 Family history of malignant neoplasm of breast
CPT/HCPCS: 77067

== ENCOUNTER 2021-12-12 19:30 | Outpatient (CLI) | payer OTHER | END 2021-12-12 19:31 | disposition home or self-care (01) | LOC: SLEEPLAB 19:30 | PROVIDERS: ATTEND Family Medicine | DX: G47.33 Obstructive sleep apnea (adult) (pediatric) (principal); F31.9 Bipolar disorder, unspecified; E66.9 Obesity, unspecified; R06.83 Snoring; G47.00 Insomnia, unspecified; J44.9 Chronic obstructive pulmonary disease, unspecified; I49.9 Cardiac arrhythmia, unspecified; I11.0 Hypertensive heart disease with heart failure; I50.9 Heart failure, unspecified; Z68.29 Body mass index [BMI] 29.0-29.9, adult | CPT/HCPCS: 95810 ==

== ENCOUNTER 2022-01-21 13:20 | Outpatient (CLI) | payer OTHER | END 2022-01-21 13:21 | disposition home or self-care (01) | LOC: SLEEPLAB 13:20 | PROVIDERS: ATTEND Family Medicine | DX: F51.9 Sleep disorder not due to a substance or known physiological condition, unspecified (principal); R06.83 Snoring; G47.00 Insomnia, unspecified; I11.0 Hypertensive heart disease with heart failure; I50.9 Heart failure, unspecified; F31.9 Bipolar disorder, unspecified; R06.89 Other abnormalities of breathing; G47.10 Hypersomnia, unspecified; G47.33 Obstructive sleep apnea (adult) (pediatric); G47.31 Primary central sleep apnea; E66.9 Obesity, unspecified; Z68.29 Body mass index [BMI] 29.0-29.9, adult | CPT/HCPCS: 95811 ==

== ENCOUNTER 2022-05-17 08:40 | Emergency (ER) | payer OTHER ==
[2022-05-17 09:33] LABS: Actual Bicarbonate (HCO3v) 26 mEq/L (22-28); Analyzer IN Cardio ER; Base Excess -1.4 mEq/L (-2.0 to +3.0); Calcium, Ionized (venous) 1.16 mmol/L (1.16-1.32); Chloride (VBG) 109 mmol/L (98-106); Hemoglobin (Hb) 16.4 g/dL (11.7-16.0); Potassium (VBG) 4.23 mmol/L (3.70-5.30); Sodium 133.8 mmol/L (133-146)
[2022-05-17] MEDS ORDERED: Magnesium 2 GM/50 ML BAG (IN WATER) ONE (09:38)
[2022-05-17] MEDS ORDERED: methylPREDNISolone Sod Succ/PF 125 MG/2 ML VIAL ONE (09:39)
[2022-05-17] MEDS ORDERED: Furosemide 40 MG/4 ML VIAL ONE (09:39)
[2022-05-17] MEDS ORDERED: Azithromycin 500 MG VIAL ONE (09:40)
[2022-05-17 09:47] LABS: #Basophils 0.1 thou/uL (0.0-0.2); #Eosinphils 0.3 thou/uL (0.0-0.7); #Lymphocytes 1.7 thou/uL (1.20-3.40); #Monocytes 0.3 thou/uL (0.11-0.59); #Neutrophils 1.9 thou/uL (1.40-6.50); %Basophils 1.4 % (0.0-1.0); %Eosinophils 7.2 % (0.0-10.0); %Lymphocytes 39.7 % (21.0-51.0); %Neutrophils 44.8 % (42.0-75.0); Hemoglobin 15.5 g/dL (12.0-16.0); Mean Corpuscular HGB CONC 33.6 g/dL (32.0-36.0); Mean Corpuscular Volume 95.2 fL (78.0-98.0); Mean Platelet Volume 9.5 fL (7.4-10.4); Platelet Count 172 thou/uL (130-400); RBC Distribution Width 12.6 % (11.5-14.5); Red Blood Cell (RBC) Count 4.85 mill/uL (4.20-5.40); White Blood Cell (WBC) Count 4.3 thou/uL (4.8-10.8)
[2022-05-17 10:12] LABS: ALT (SGPT) 11 U/L (8-55); AST (SGOT) 18 U/L (5-34); Albumin 4.1 g/dL (3.4-4.8); Alkaline Phosphatase 74 U/L (40-110); Anion Gap 11 mmol/L (10-20); BUN (Urea Nitrogen) 17 mg/dL (9.8-20.1); Bilirubin, Total 0.5 mg/dL (0.2-1.2); Calc. Creatinine Clearance 0 mL/min (70-130); Calcium 9.8 mg/dL (7.8-10.44); Carbon Dioxide 26 mmol/L (23-31); Chloride 110 mmol/L (98-107); Estimated GFR 58; Globulin 2.6 g/dL (2.4-3.5); Glucose 105 mg/dL (80-115); Potassium 4.3 mmol/L (3.5-5.1); Protein, Total 6.7 g/dL (5.8-8.1); Sodium 143 mmol/L (136-145)
== END 2022-05-17 12:00 | disposition home or self-care (01) ==
LOC: ERS 08:40
DX: J44.1 Chronic obstructive pulmonary disease with (acute) exacerbation (principal); I11.0 Hypertensive heart disease with heart failure; I50.9 Heart failure, unspecified; I25.2 Old myocardial infarction; I48.91 Unspecified atrial fibrillation; E78.5 Hyperlipidemia, unspecified; F17.210 Nicotine dependence, cigarettes, uncomplicated
CPT/HCPCS: 36415; 71045; 80053; 82805; 83880; 84484; 85025; 93005; 96365; 96367; 96375; J0456; J1940; J2930; J3475; J7620

== ENCOUNTER 2022-06-20 10:50 | Inpatient (IN) | payer OTHER ==
[2022-06-20] MEDS ORDERED: Albuterol Sulfate 2.5 mg/0.5 ml Neb ONE ×3 (11:51→13:50)
[2022-06-20] MEDS ORDERED: Magnesium 2 GM/50 ML BAG (IN WATER) ONE (12:22)
[2022-06-20] MEDS ORDERED: Dexamethasone 4 mg/ml Vial ONE (12:22)
[2022-06-20 12:38] LABS: #Eosinphils 0.2 thou/uL (0.0-0.7); #Lymphocytes 1.1 thou/uL (1.20-3.40); #Monocytes 0.3 thou/uL (0.11-0.59); #Neutrophils 4.2 thou/uL (1.40-6.50); %Basophils 0.2 % (0.0-1.0); %Lymphocytes 18.3 % (21.0-51.0); %Monocytes 4.7 % (0.0-10.0); %Neutrophils 72.8 % (42.0-75.0); Hemoglobin 14.8 g/dL (12.0-16.0); Mean Corpuscular HGB CONC 34.5 g/dL (32.0-36.0); Mean Corpuscular Hemoglobin 32.1 pg (27.0-31.0); Mean Corpuscular Volume 92.9 fl (78.0-98.0); Platelet Count 158 thou/uL (130-400); RBC Distribution Width 12.5 % (11.5-14.5); Red Blood Cell (RBC) Count 4.62 mill/uL (4.20-5.40); White Blood Cell (WBC) Count 5.8 thou/uL (4.8-10.8)
[2022-06-20 12:43] LABS: SARS-CoV-2 NAA Rapid Test Not Detected (NotDetected)
[2022-06-20 12:59] LABS: ALT (SGPT) 10 U/L (8-55); AST (SGOT) 18 U/L (5-34); Albumin 4.4 g/dL (3.4-4.8); Alkaline Phosphatase 86 U/L (40-110); Anion Gap 14 mmol/L (10-20); BUN (Urea Nitrogen) 11 mg/dL (9.8-20.1); Bilirubin, Total 0.6 mg/dL (0.2-1.2); CK (CPK) 95 U/L (29-168); Calc. Creatinine Clearance 0 mL/min (70-130); Calcium 9.6 mg/dL (7.8-10.44); Carbon Dioxide 24 mmol/L (23-31); Chloride 106 mmol/L (98-107); Estimated GFR 60; Globulin 2.5 g/dL (2.4-3.5); Glucose 102 mg/dL (80-115); Potassium 3.8 mmol/L (3.5-5.1); Protein, Total 6.9 g/dL (5.8-8.1); Sodium 140 mmol/L (136-145)
[2022-06-20] MEDS ORDERED: Acetaminophen 500 MG TAB ONE (13:24)
[2022-06-20] MEDS ORDERED: Dextrose 50% Abboject 50 ML SYRINGE SLOW IVP PRN (13:31)
[2022-06-20] MEDS ORDERED: HumaLOG 300 UNITS/3 ML VIAL SC PRN (13:31)
[2022-06-20] MEDS ORDERED: Dextrose 5% in Water 1,000 ML IV PRN (13:31)
[2022-06-20] MEDS ORDERED: Ondansetron PF 4 MG/2 ML Vial IVP PRN (13:31)
[2022-06-20] MEDS ORDERED: Lorazepam 0.5 MG TAB PO PRN (15:01)
[2022-06-20] MEDS ORDERED: Lorazepam 2 MG/ML VIAL IM PRN (15:40)
[2022-06-20] MEDS ORDERED: Ondansetron ODT 4 MG TAB PO PRN (15:40)
[2022-06-20] MEDS ORDERED: Lorazepam 1 MG TAB PO PRN (15:40)
[2022-06-20] MEDS ORDERED: Electrolyte Replacement Protocol 1 EACH FS SCH (15:45)
[2022-06-20] MEDS ORDERED: Multivit, Therapeutic 1 TAB PO SCH (16:00)
[2022-06-20] MEDS ORDERED: Folic Acid 1 MG TAB PO SCH (16:00)
[2022-06-20] MEDS: GUAIFENESIN SF SOLN 200 MG/10 ML UDCUP PO PRN (16:00)
[2022-06-20] MEDS: methylPREDNISolone Sod Succ 40 MG VIAL IVP SCH (16:00)
[2022-06-20 16:10] VITALS: BMI 29.0
[2022-06-20] MEDS ORDERED: Electrolyte Replacement Protocol FS PRN (16:15)
[2022-06-20] MEDS ORDERED: Escitalopram Oxalate 20 mg Tablet PO SCH (16:15)
[2022-06-20 16:54] LABS: ALT (SGPT) 11 U/L (8-55); AST (SGOT) 14 U/L (5-34); Albumin 4.3 g/dL (3.4-4.8); Alkaline Phosphatase 82 U/L (40-110); Anion Gap 13 mmol/L (10-20); BUN (Urea Nitrogen) 12 mg/dL (9.8-20.1); Bilirubin, Direct 0.2 mg/dL (0.1-0.3); Bilirubin, Total 0.5 mg/dL (0.2-1.2); Calc. Creatinine Clearance 63 mL/min (70-130); Calcium 9.5 mg/dL (7.8-10.44); Carbon Dioxide 24 mmol/L (23-31); Chloride 106 mmol/L (98-107); Estimated GFR 52; Globulin 2.6 g/dL (2.4-3.5); Glucose 147 mg/dL (80-115); Magnesium 2.5 mg/dL (1.6-2.6); Phosphorus 2.3 mg/dL (2.3-4.7); Potassium 3.7 mmol/L (3.5-5.1); Protein, Total 6.9 g/dL (5.8-8.1); Sodium 139 mmol/L (136-145)
[2022-06-20] MEDS: Thiamine HCl 200 MG/2 ML VIAL SLOW IVP SCH (16:54)
[2022-06-20] MEDS: cefTRIAXone\\ROCEPHIN 1 GM in Sodium Chloride 0.9% 100 ML IVPB SCH (16:55)
[2022-06-20] MEDS ORDERED: Lorazepam 1 MG TAB PO SCH (18:00)
[2022-06-20] MEDS: cloNIDine 0.1 MG TAB PO SCH (20:39)
[2022-06-20] MEDS: Atorvastatin Calcium 20 MG TAB PO SCH (20:39)
[2022-06-21] MEDS: Acetaminophen 325 MG TAB PO PRN ×2 (00:27→18:04)
[2022-06-21] MEDS: GUAIFENESIN SF SOLN 200 MG/10 ML UDCUP PO PRN ×2 (06:15→16:21)
[2022-06-21 07:30] LABS: #Basophils 0.1 thou/uL (0.0-0.2); #Lymphocytes 0.2 thou/uL (1.20-3.40); #Monocytes 0.3 thou/uL (0.11-0.59); #Neutrophils 5.6 thou/uL (1.40-6.50); %Basophils 1.5 % (0.0-1.0); %Eosinophils 0.3 % (0.0-10.0); %Lymphocytes 3.6 % (21.0-51.0); %Neutrophils 90.6 % (42.0-75.0); Hemoglobin 14.8 g/dL (12.0-16.0); Mean Corpuscular HGB CONC 33.6 g/dL (32.0-36.0); Mean Corpuscular Hemoglobin 31.9 pg (27.0-31.0); Mean Corpuscular Volume 95.1 fl (78.0-98.0); Mean Platelet Volume 8.9 fL (7.4-10.4); Platelet Count 169 thou/uL (130-400); RBC Distribution Width 12.5 % (11.5-14.5); Red Blood Cell (RBC) Count 4.63 mill/uL (4.20-5.40); White Blood Cell (WBC) Count 6.2 thou/uL (4.8-10.8)
[2022-06-21 07:51] LABS: Anion Gap 12 mmol/L (10-20); BUN (Urea Nitrogen) 17 mg/dL (9.8-20.1); Calc. Creatinine Clearance 79 mL/min (70-130); Calcium 9.4 mg/dL (7.8-10.44); Carbon Dioxide 20 mmol/L (23-31); Chloride 110 mmol/L (98-107); Estimated GFR 67; Glucose 117 mg/dL (80-115); Potassium 4.2 mmol/L (3.5-5.1); Sodium 138 mmol/L (136-145)
[2022-06-21] MEDS: Folic Acid 1 MG TAB PO SCH (08:22)
[2022-06-21] MEDS: Enoxaparin Sodium 40 MG/0.4 ML SYRINGE SC SCH (08:22)
[2022-06-21] MEDS: cloNIDine 0.1 MG TAB PO SCH ×2 (08:22→20:07)
[2022-06-21] MEDS: Multivit, Therapeutic 1 TAB PO SCH (08:22)
[2022-06-21] MEDS: Escitalopram Oxalate 20 mg Tablet PO SCH (08:22)
[2022-06-21] MEDS: methylPREDNISolone Sod Succ 40 MG VIAL IVP SCH ×2 (08:22→16:03)
[2022-06-21] MEDS ORDERED: Lorazepam 1 MG TAB PO PRN (15:40)
[2022-06-21] MEDS: Thiamine HCl 200 MG/2 ML VIAL SLOW IVP SCH (16:03)
[2022-06-21] MEDS: cefTRIAXone\\ROCEPHIN 1 GM in Sodium Chloride 0.9% 100 ML IVPB SCH (16:03)
[2022-06-21] MEDS ORDERED: Mag-Al Plus 1200 MG/1200 MG/120 MG/30 ML UDCUP PO PRN (17:58)
[2022-06-21] MEDS: Atorvastatin Calcium 20 MG TAB PO SCH (20:06)
[2022-06-21] MEDS: Cefdinir 300 MG CAP PO SCH (20:07)
[2022-06-21] MEDS: guaiFENesin ER 600 MG TAB PO SCH (20:07)
[2022-06-21] MEDS: Oseltamivir 75 MG CAP PO SCH (20:08)
[2022-06-22] MEDS: GUAIFENESIN SF SOLN 200 MG/10 ML UDCUP PO PRN (05:17)
[2022-06-22] MEDS: Enoxaparin Sodium 40 MG/0.4 ML SYRINGE SC SCH (08:43)
[2022-06-22] MEDS: guaiFENesin ER 600 MG TAB PO SCH ×2 (08:44→20:22)
[2022-06-22] MEDS: Cefdinir 300 MG CAP PO SCH ×2 (08:44→20:22)
[2022-06-22] MEDS: Escitalopram Oxalate 20 mg Tablet PO SCH (08:44)
[2022-06-22] MEDS: cloNIDine 0.1 MG TAB PO SCH ×2 (08:44→20:22)
[2022-06-22] MEDS: Oseltamivir 75 MG CAP PO SCH ×2 (08:44→20:22)
[2022-06-22] MEDS: predniSONE 20 MG TAB PO SCH (08:44)
[2022-06-22] MEDS: Folic Acid 1 MG TAB PO SCH (08:44)
[2022-06-22] MEDS: Multivit, Therapeutic 1 TAB PO SCH (08:44)
[2022-06-22] MEDS: Thiamine HCl 200 MG/2 ML VIAL SLOW IVP SCH (15:36)
[2022-06-22] MEDS ORDERED: Lorazepam 1 MG TAB PO PRN (15:40)
[2022-06-22] MEDS ORDERED: Lorazepam 0.5 MG TAB PO SCH (18:00)
[2022-06-22] MEDS: Atorvastatin Calcium 20 MG TAB PO SCH (20:21)
[2022-06-23] MEDS: Cefdinir 300 MG CAP PO SCH ×2 (07:50→20:01)
[2022-06-23] MEDS: Multivit, Therapeutic 1 TAB PO SCH (07:50)
[2022-06-23] MEDS: guaiFENesin ER 600 MG TAB PO SCH ×2 (07:50→20:01)
[2022-06-23] MEDS: Oseltamivir 75 MG CAP PO SCH ×2 (07:50→20:01)
[2022-06-23] MEDS: cloNIDine 0.1 MG TAB PO SCH ×2 (07:50→20:01)
[2022-06-23] MEDS: Escitalopram Oxalate 20 mg Tablet PO SCH (07:50)
[2022-06-23] MEDS: predniSONE 20 MG TAB PO SCH (07:50)
[2022-06-23] MEDS: Enoxaparin Sodium 40 MG/0.4 ML SYRINGE SC SCH (07:50)
[2022-06-23] MEDS: Folic Acid 1 MG TAB PO SCH (07:50)
[2022-06-23] MEDS ORDERED: Lorazepam 0.5 MG TAB PO PRN (15:40)
[2022-06-23] MEDS ORDERED: Thiamine 100 MG TAB PO SCH (15:45)
[2022-06-23 19:31] VITALS: TEMP 98.3
[2022-06-23] MEDS: Acetaminophen 325 MG TAB PO PRN (19:57)
[2022-06-23] MEDS: Atorvastatin Calcium 20 MG TAB PO SCH (20:01)
[2022-06-24] MEDS: Folic Acid 1 MG TAB PO SCH (08:25)
[2022-06-24] MEDS: Enoxaparin Sodium 40 MG/0.4 ML SYRINGE SC SCH (08:25)
[2022-06-24] MEDS: Escitalopram Oxalate 20 mg Tablet PO SCH (08:25)
[2022-06-24] MEDS: guaiFENesin ER 600 MG TAB PO SCH (08:25)
[2022-06-24] MEDS: cloNIDine 0.1 MG TAB PO SCH (08:26)
[2022-06-24] MEDS: Multivit, Therapeutic 1 TAB PO SCH (08:26)
[2022-06-24] MEDS: Cefdinir 300 MG CAP PO SCH (08:27)
[2022-06-24] MEDS: predniSONE 20 MG TAB PO SCH (08:27)
[2022-06-24] MEDS: Oseltamivir 75 MG CAP PO SCH (08:27)
[2022-06-24 08:30] VITALS: BP 142/97
[2022-06-24 10:29] LABS: Mean Corpuscular HGB CONC 33.1 g/dL (32.0-36.0); Mean Corpuscular Hemoglobin 31.6 pg (27.0-31.0); Mean Corpuscular Volume 95.6 fl (78.0-98.0); Mean Platelet Volume 9.1 fL (7.4-10.4); Platelet Count 159 thou/uL (130-400); RBC Distribution Width 12.5 % (11.5-14.5); Red Blood Cell (RBC) Count 4.74 mill/uL (4.20-5.40); White Blood Cell (WBC) Count 4.5 thou/uL (4.8-10.8)
[2022-06-24 10:43] LABS: Anion Gap 13 mmol/L (10-20); BUN (Urea Nitrogen) 17 mg/dL (9.8-20.1); Calc. Creatinine Clearance 65 mL/min (70-130); Calcium 9.3 mg/dL (7.8-10.44); Carbon Dioxide 23 mmol/L (23-31); Chloride 110 mmol/L (98-107); Estimated GFR 53; Glucose 95 mg/dL (80-115); Potassium 3.6 mmol/L (3.5-5.1); Sodium 142 mmol/L (136-145)
[2022-06-24 11:06] LABS: Band 3 % (5-11); Eosinophils 3 % (0-10); Lymphocytes 30 % (21-51); MDiff Complete? YES; Monocytes 7 % (0-10); Neutrophil 56 % (42-75); RBC Morphology Normal
== END 2022-06-24 14:00 | disposition home or self-care (01) | DRG 193 ==
LOC: ERS 10:50 → T4-B 15:00
PROVIDERS: ADMIT Internal Medicine; ATTEND Internal Medicine
DX: J10.1 Influenza due to other identified influenza virus with other respiratory manifestations (principal); J96.01 Acute respiratory failure with hypoxia; J44.1 Chronic obstructive pulmonary disease with (acute) exacerbation; Z20.822 Contact with and (suspected) exposure to COVID-19; I25.10 Atherosclerotic heart disease of native coronary artery without angina pectoris; E11.9 Type 2 diabetes mellitus without complications; E78.5 Hyperlipidemia, unspecified; F20.9 Schizophrenia, unspecified; F32.A Depression, unspecified; I50.9 Heart failure, unspecified; I11.0 Hypertensive heart disease with heart failure; F14.10 Cocaine abuse, uncomplicated; F10.10 Alcohol abuse, uncomplicated; F39 Unspecified mood [affective] disorder; I25.2 Old myocardial infarction; Z90.710 Acquired absence of both cervix and uterus; Z98.51 Tubal ligation status; Z79.899 Other long term (current) drug therapy; Z81.8 Family history of other mental and behavioral disorders
CPT/HCPCS: 36415; 36416; 71045; 71250; 80048; 80053; 82248; 82550; 83735; 83880; 84100; 84484; 85025; 93005; 93010; 94640; 96365; 96366; 96375; J0696; J1100; J1650; J2920; J3411; J3475; J3490; J7512; J7611; J7620

== ENCOUNTER 2022-08-10 09:57 | Inpatient (IN) | payer OTHER ==
[2022-08-10] MEDS ORDERED: Magnesium 2 GM/50 ML BAG (IN WATER) ONE (10:06)
[2022-08-10] MEDS ORDERED: Albuterol Sulfate 2.5 mg/3 ml Neb ONE (10:20)
[2022-08-10] MEDS ORDERED: methylPREDNISolone Sod Succ/PF 125 MG/2 ML VIAL ONE (10:25)
[2022-08-10] MEDS ORDERED: Aspirin Chewable 81 MG TAB ONE (10:25)
[2022-08-10] MEDS ORDERED: Azithromycin 500 MG VIAL ONE (10:25)
[2022-08-10] MEDS ORDERED: cefTRIAXone\\ROCEPHIN 1 GM VIAL ONE (10:25)
[2022-08-10 10:31] LABS: Actual Bicarbonate (HCO3a) 24.5 mEq/L (22-28); Analyzer IN Cardio ER; Base Excess (BEa) -1.4 mEq/L (-2.0 to +3.0); CO2 Tension 45.8 mmHg (35.0-45.0); Calcium, Ionized (arterial) 1.21 mmol/L (1.12-1.30); Carboxyhemoglobin (COHb) 4.3 gm% (0.0-3.0); Hemoglobin (Hb) 15.8 g/dL (12.0-16.0); O2 Tension (PaO2), arterial 116.6 mmHg (> 80.0); Potassium - ABG Lab 3.88 mmol/L (3.70-5.30); pH, Arterial 7.35 (7.35-7.45)
[2022-08-10 10:39] LABS: Mean Corpuscular HGB CONC 35.4 g/dL (32.0-36.0); Mean Corpuscular Hemoglobin 33.2 pg (27.0-31.0); Mean Corpuscular Volume 93.8 fl (78.0-98.0); RBC Distribution Width 12.6 % (11.5-14.5); Red Blood Cell (RBC) Count 4.82 mill/uL (4.20-5.40)
[2022-08-10 10:52] LABS: Puncture Site RRA
[2022-08-10 10:55] LABS: Eosinophils 24 % (0-10); Lymphocytes 36 % (21-51); MDiff Complete? YES; Monocytes 2 % (0-10); Neutrophil 38 % (42-75); Platelet Count 167 10x3/uL (130-400); Platelet Morphology Comment Appears Adequate
[2022-08-10 12:08] LABS: Albumin 4.2 g/dL (3.4-4.8)
[2022-08-10 12:09] LABS: Chloride 108 mmol/L (98-107); Potassium 4.4 mmol/L (3.5-5.1); Sodium 140 mmol/L (136-145)
[2022-08-10 12:10] LABS: Calcium 8.9 mg/dL (7.8-10.44); Glucose 125 mg/dL (80-115)
[2022-08-10 12:11] LABS: Globulin 2.8 g/dL (2.4-3.5)
[2022-08-10 12:12] LABS: Anion Gap 16 mmol/L (10-20); Bilirubin, Total 0.9 mg/dL (0.2-1.2); Carbon Dioxide 20 mmol/L (23-31)
[2022-08-10 12:13] LABS: Alkaline Phosphatase 64 U/L (40-110)
[2022-08-10 12:14] LABS: Calc. Creatinine Clearance 0 mL/min (70-130); Estimated GFR 42
[2022-08-10] MEDS ORDERED: Albuterol Sulfate 2.5 mg/3 ml Neb NEB PRN (12:14)
[2022-08-10 12:15] LABS: BUN (Urea Nitrogen) 13 mg/dL (9.8-20.1)
[2022-08-10 12:16] LABS: ALT (SGPT) 13 U/L (8-55); AST (SGOT) 24 U/L (5-34); CK (CPK) 149 U/L (29-168)
[2022-08-10 12:43] LABS: SARS-CoV-2 NAA Rapid Test Not Detected (NotDetected)
[2022-08-10 14:30] VITALS: BMI 28.8
[2022-08-10] MEDS: Guaifenesin DM 100-10/5 ML UDCUP PO PRN (15:05)
[2022-08-10] MEDS: Acetaminophen 325 MG TAB PO PRN ×2 (15:05→19:54)
[2022-08-10 17:54] LABS: Bacteria/HPF None Seen HPF (None Seen); Bilirubin Negative (Negative); Blood, Urine Negative (Negative); Clarity Clear (Clear); Glucose, Urine (Dipstick) Normal (Negative); Ketone, Urine Negative (Negative); Leukocyte Negative Leu/uL (Negative); Nitrite Negative (Negative); Protein, Urine (Dipstick) 20 mg/dL (Neg-Trace); RBC/HPF None Seen HPF (0-3); Specific Gravity, Urine 1.015 (1.002-1.036); Squamous Epithelial 0-3 HPF (0-3); Urobilinogen Normal mg/dL (Less than 2); WBC/HPF 0-3 HPF (0-3)
[2022-08-10 18:03] LABS: Amphetamine Not Detected (NotDetected); Barbiturates Screen Not Detected (NotDetected); Benzodiazepine Screen Not Detected (NotDetected); Cocaine Metabolite Screen Detected (NotDetected); Methadone Not Detected (NotDetected); Methamphetamine Not Detected (NotDetected); Opiate Screen Detected (NotDetected); Oxycodone Screen Not Detected (NotDetected); Phencyclidine (PCP) Not Detected (NotDetected); THC/Cannabinoid Screen Not Detected (NotDetected); Tricyclic Screen Detected (NotDetected)
[2022-08-10] MEDS: methylPREDNISolone Sod Succ 40 MG VIAL IVP SCH (18:41)
[2022-08-10] MEDS: cloNIDine 0.2 MG TAB PO SCH (18:43)
[2022-08-10] MEDS: Mometasone 200 MCG/Formoterol 5 MCG 120 PUFF INHALER INH SCH (19:20)
[2022-08-10] MEDS: Senokot S 8.6-50 MG TAB PO PRN (19:54)
[2022-08-10] MEDS: Famotidine 20 MG TAB PO SCH (19:56)
[2022-08-10] MEDS: hydrALAZINE 25 MG TAB PO SCH (19:56)
[2022-08-10] MEDS: Ondansetron PF 4 MG/2 ML Vial IVP PRN (20:08)
[2022-08-11] MEDS: methylPREDNISolone Sod Succ 40 MG VIAL IVP SCH ×4 (00:47→21:47)
[2022-08-11 02:46] LABS: #Lymphocytes 0.6 thou/uL (1.20-3.40); #Monocytes 0.1 thou/uL (0.11-0.59); #Neutrophils 7.2 thou/uL (1.40-6.50); %Basophils 0.4 % (0.0-1.0); %Eosinophils 0.1 % (0.0-10.0); %Lymphocytes 7.5 % (21.0-51.0); %Monocytes 1.5 % (0.0-10.0); %Neutrophils 90.4 % (42.0-75.0); Hemoglobin 15.5 g/dL (12.0-16.0); Mean Corpuscular HGB CONC 34.9 g/dL (32.0-36.0); Mean Corpuscular Hemoglobin 32.8 pg (27.0-31.0); Mean Corpuscular Volume 93.9 fl (78.0-98.0); Mean Platelet Volume 9.6 fL (7.4-10.4); Platelet Count 149 10x3/uL (130-400); RBC Distribution Width 12.6 % (11.5-14.5); Red Blood Cell (RBC) Count 4.73 mill/uL (4.20-5.40)
[2022-08-11 03:13] LABS: Anion Gap 16 mmol/L (10-20); BUN (Urea Nitrogen) 13 mg/dL (9.8-20.1); Calc. Creatinine Clearance 76 mL/min (70-130); Calcium 9.6 mg/dL (7.8-10.44); Carbon Dioxide 17 mmol/L (23-31); Chloride 109 mmol/L (98-107); Estimated GFR 65; Glucose 144 mg/dL (80-115); Potassium 4.2 mmol/L (3.5-5.1); Sodium 138 mmol/L (136-145)
[2022-08-11] MEDS: Mometasone 200 MCG/Formoterol 5 MCG 120 PUFF INHALER INH SCH ×2 (06:20→18:48)
[2022-08-11] MEDS: Ondansetron PF 4 MG/2 ML Vial IVP PRN ×2 (08:48→13:54)
[2022-08-11] MEDS: Enoxaparin Sodium 40 MG/0.4 ML SYRINGE SC SCH (08:48)
[2022-08-11] MEDS: Famotidine 20 MG TAB PO SCH ×2 (08:49→21:46)
[2022-08-11] MEDS: hydrALAZINE 25 MG TAB PO SCH ×2 (08:49→21:46)
[2022-08-11] MEDS: cloNIDine 0.2 MG TAB PO SCH ×2 (08:49→21:47)
[2022-08-11] MEDS: Guaifenesin DM 100-10/5 ML UDCUP PO PRN ×2 (10:56→22:03)
[2022-08-11] MEDS ORDERED: Benzonatate 100 MG CAP PO PRN (11:36)
[2022-08-11] MEDS: Senokot S 8.6-50 MG TAB PO PRN (13:34)
[2022-08-12] MEDS: methylPREDNISolone Sod Succ 40 MG VIAL IVP SCH (06:58)
[2022-08-12] MEDS: Mometasone 200 MCG/Formoterol 5 MCG 120 PUFF INHALER INH SCH ×2 (07:51→18:51)
[2022-08-12] MEDS: Enoxaparin Sodium 40 MG/0.4 ML SYRINGE SC SCH (09:55)
[2022-08-12] MEDS: Guaifenesin DM 100-10/5 ML UDCUP PO PRN (09:55)
[2022-08-12] MEDS: hydrALAZINE 25 MG TAB PO SCH ×2 (09:56→20:52)
[2022-08-12] MEDS: Famotidine 20 MG TAB PO SCH ×2 (09:56→20:53)
[2022-08-12] MEDS: cloNIDine 0.2 MG TAB PO SCH ×2 (09:57→20:53)
[2022-08-12] MEDS: Milk Of Magnesia 30 ML UDCUP PO PRN ×2 (14:57→20:53)
[2022-08-12] MEDS ORDERED: Senokot S 8.6-50 MG TAB PO PRN (15:00)
[2022-08-12] MEDS: Ondansetron PF 4 MG/2 ML Vial IVP PRN (20:52)
[2022-08-12 20:53] VITALS: BP 160/106
[2022-08-12] MEDS ORDERED: predniSONE 20 MG TAB PO SCH (21:00)
[2022-08-13] MEDS: Ondansetron PF 4 MG/2 ML Vial IVP PRN (01:58)
[2022-08-13] MEDS: Guaifenesin DM 100-10/5 ML UDCUP PO PRN ×2 (02:11→09:00)
[2022-08-13 03:09] LABS: #Basophils 0.1 thou/uL (0.0-0.2); #Eosinphils 0.1 thou/uL (0.0-0.7); #Monocytes 0.6 thou/uL (0.11-0.59); #Neutrophils 7.5 thou/uL (1.40-6.50); %Basophils 0.8 % (0.0-1.0); %Eosinophils 0.7 % (0.0-10.0); %Lymphocytes 19.3 % (21.0-51.0); %Monocytes 5.5 % (0.0-10.0); %Neutrophils 73.6 % (42.0-75.0); Mean Corpuscular HGB CONC 33.7 g/dL (32.0-36.0); Mean Corpuscular Hemoglobin 31.8 pg (27.0-31.0); Mean Corpuscular Volume 94.3 fl (78.0-98.0); Mean Platelet Volume 9.3 fL (7.4-10.4); Platelet Count 167 10x3/uL (130-400); RBC Distribution Width 12.9 % (11.5-14.5); Red Blood Cell (RBC) Count 5.66 mill/uL (4.20-5.40); White Blood Cell (WBC) Count 10.2 10x3/uL (4.8-10.8)
[2022-08-13] MEDS ORDERED: Promethazine HCl 12.5 MG in Sodium Chloride 0.9% 50 ML IVPB SCH (03:30)
[2022-08-13 03:35] LABS: ALT (SGPT) 18 U/L (8-55); AST (SGOT) 27 U/L (5-34); Albumin 4.1 g/dL (3.4-4.8); Alkaline Phosphatase 68 U/L (40-110); Anion Gap 16 mmol/L (10-20); BUN (Urea Nitrogen) 17 mg/dL (9.8-20.1); Bilirubin, Total 0.8 mg/dL (0.2-1.2); Calc. Creatinine Clearance 53 mL/min (70-130); Calcium 10.5 mg/dL (7.8-10.44); Carbon Dioxide 27 mmol/L (23-31); Chloride 98 mmol/L (98-107); Estimated GFR 42; Glucose 127 mg/dL (80-115); Magnesium 2.4 mg/dL (1.6-2.6); Potassium 3.4 mmol/L (3.5-5.1); Protein, Total 7.1 g/dL (5.8-8.1); Sodium 138 mmol/L (136-145)
[2022-08-13] MEDS: Mometasone 200 MCG/Formoterol 5 MCG 120 PUFF INHALER INH SCH (07:11)
[2022-08-13 07:29] VITALS: TEMP 97.4
[2022-08-13] MEDS: hydrALAZINE 25 MG TAB PO SCH (08:59)
[2022-08-13] MEDS: Enoxaparin Sodium 40 MG/0.4 ML SYRINGE SC SCH (08:59)
[2022-08-13] MEDS: Famotidine 20 MG TAB PO SCH (09:00)
[2022-08-13] MEDS ORDERED: predniSONE 20 MG TAB PO SCH (09:00)
[2022-08-13] MEDS: cloNIDine 0.2 MG TAB PO SCH (09:00)
== END 2022-08-13 13:10 | disposition home or self-care (01) | DRG 917 ==
LOC: ERS 09:57 → IMCU/EMU 11:44
PROVIDERS: ADMIT Hospitalist; ATTEND Internal Medicine
DX: T58.91XA Toxic effect of carbon monoxide from unspecified source, accidental (unintentional), initial encounter (principal); J96.01 Acute respiratory failure with hypoxia; J44.1 Chronic obstructive pulmonary disease with (acute) exacerbation; I48.91 Unspecified atrial fibrillation; E78.5 Hyperlipidemia, unspecified; F32.A Depression, unspecified; I11.0 Hypertensive heart disease with heart failure; I50.9 Heart failure, unspecified; F10.10 Alcohol abuse, uncomplicated; F17.210 Nicotine dependence, cigarettes, uncomplicated; J20.9 Acute bronchitis, unspecified; F14.10 Cocaine abuse, uncomplicated; I25.2 Old myocardial infarction; Z90.710 Acquired absence of both cervix and uterus; Z98.51 Tubal ligation status; Z79.899 Other long term (current) drug therapy; Z79.51 Long term (current) use of inhaled steroids; Z79.52 Long term (current) use of systemic steroids
CPT/HCPCS: 36415; 36416; 36600; 71045; 71046; 80048; 80053; 80306; 81001; 82550; 82805; 83605; 83735; 83880; 84484; 85025; 87040; 87070; 87205; 93005; 94640; 94660; 96365; 96374; 96375; J0456; J0696; J1650; J1956; J2405; J2550; J2920; J2930; J3475; J7512; J7611; J7620

== ENCOUNTER 2022-11-21 04:49 | Observation (INO) | payer OTHER ==
[2022-11-21 07:21] LABS: #Eosinphils 0.3 thou/uL (0.0-0.7); #Lymphocytes 2.4 thou/uL (1.20-3.40); #Monocytes 0.5 thou/uL (0.11-0.59); #Neutrophils 4.8 thou/uL (1.40-6.50); %Basophils 0.4 % (0.0-1.0); %Eosinophils 3.7 % (0.0-10.0); %Lymphocytes 29.7 % (21.0-51.0); %Monocytes 6.5 % (0.0-10.0); %Neutrophils 59.7 % (42.0-75.0); Hemoglobin 14.3 g/dL (12.0-16.0); Mean Corpuscular Hemoglobin 32.8 pg (27.0-31.0); Mean Corpuscular Volume 93.7 fl (78.0-98.0); Mean Platelet Volume 9.1 fL (7.4-10.4); Platelet Count 198 10x3/uL (130-400); Red Blood Cell (RBC) Count 4.36 mill/uL (4.20-5.40)
[2022-11-21 07:25] LABS: ALT (SGPT) 19 U/L (8-55); AST (SGOT) 17 U/L (5-34); Albumin 3.8 g/dL (3.4-4.8); Alkaline Phosphatase 64 U/L (40-110); Anion Gap 11 mmol/L (10-20); BUN (Urea Nitrogen) 22 mg/dL (9.8-20.1); Bilirubin, Total 0.3 mg/dL (0.2-1.2); Calc. Creatinine Clearance 0 mL/min (70-130); Calcium 8.8 mg/dL (7.8-10.44); Carbon Dioxide 23 mmol/L (23-31); Chloride 111 mmol/L (98-107); Estimated GFR 50; Globulin 2.4 g/dL (2.4-3.5); Glucose 79 mg/dL (80-115); Potassium 3.7 mmol/L (3.5-5.1); Protein, Total 6.2 g/dL (5.8-8.1); Sodium 141 mmol/L (136-145)
[2022-11-21] MEDS ORDERED: Ondansetron PF 4 MG/2 ML Vial ONE (09:12)
[2022-11-21 10:54] LABS: Troponin I 0.034 ng/mL (< 0.028)
[2022-11-21] MEDS ORDERED: Acetaminophen 325 MG TAB PO PRN (11:43)
[2022-11-21] MEDS ORDERED: Ondansetron PF 4 MG/2 ML Vial IVP PRN (11:43)
[2022-11-21] MEDS ORDERED: Ondansetron ODT 4 MG TAB PO PRN (11:43)
[2022-11-21] MEDS ORDERED: Albuterol 200 PUFF (6.7GM INHALER) INH PRN (11:45)
[2022-11-21] MEDS ORDERED: Electrolyte Replacement Protocol 1 EACH FS SCH (11:45)
[2022-11-21] MEDS ORDERED: Melatonin 3 MG TAB PO PRN (11:47)
[2022-11-21] MEDS: Nitroglycerin 0.4 MG TAB (25 Tab Bottle) SL PRN ×2 (12:15→12:20)
[2022-11-21 12:23] VITALS: BMI 29.8
[2022-11-21 13:27] LABS: Amphetamine Not Detected (NotDetected); Barbiturates Screen Not Detected (NotDetected); Benzodiazepine Screen Not Detected (NotDetected); Cocaine Metabolite Screen Detected (NotDetected); Methadone Not Detected (NotDetected); Methamphetamine Not Detected (NotDetected); Opiate Screen Not Detected (NotDetected); Oxycodone Screen Not Detected (NotDetected); Phencyclidine (PCP) Not Detected (NotDetected); THC/Cannabinoid Screen Not Detected (NotDetected); Tricyclic Screen Detected (NotDetected)
[2022-11-21 13:34] LABS: Magnesium 2.3 mg/dL (1.6-2.6)
[2022-11-21 13:37] LABS: Troponin I 0.011 ng/mL (< 0.028)
[2022-11-21] MEDS: Carvedilol 6.25 MG TAB PO SCH (16:28)
[2022-11-21] MEDS ORDERED: Furosemide 20 MG TAB PO SCH (18:15)
[2022-11-21] MEDS ORDERED: Simvastatin 10 MG TAB PO SCH (21:00)
[2022-11-21] MEDS ORDERED: QUEtiapine 300 MG TAB PO SCH (21:00)
[2022-11-21] MEDS: Lisinopril 10 MG TAB PO SCH (21:21)
[2022-11-22] MEDS ORDERED: Betamethasone 0.1% Cream 15 GM TUBE TOP PRN (04:10)
[2022-11-22 08:32] VITALS: BP 137/89; TEMP 98
[2022-11-22] MEDS: Carvedilol 6.25 MG TAB PO SCH (08:42)
[2022-11-22] MEDS: Lisinopril 10 MG TAB PO SCH (08:43)
[2022-11-22] MEDS ORDERED: Aspirin Chewable 81 MG TAB PO SCH (09:00)
[2022-11-22] MEDS ORDERED: Escitalopram Oxalate 20 mg Tablet PO SCH (09:00)
[2022-11-22] MEDS ORDERED: Empagliflozin 10 MG TAB PO SCH (09:00)
[2022-11-22 11:04] LABS: #Basophils 0.1 thou/uL (0.0-0.2); #Eosinphils 0.3 thou/uL (0.0-0.7); #Lymphocytes 1.8 thou/uL (1.20-3.40); #Monocytes 0.3 thou/uL (0.11-0.59); #Neutrophils 4.1 thou/uL (1.40-6.50); %Basophils 1.9 % (0.0-1.0); %Eosinophils 3.9 % (0.0-10.0); %Monocytes 5.2 % (0.0-10.0); Hemoglobin 17.4 g/dL (12.0-16.0); Mean Corpuscular HGB CONC 33.4 g/dL (32.0-36.0); Mean Corpuscular Hemoglobin 31.3 pg (27.0-31.0); Mean Corpuscular Volume 93.8 fl (78.0-98.0); Mean Platelet Volume 9.1 fL (7.4-10.4); Platelet Count 200 10x3/uL (130-400); RBC Distribution Width 12.4 % (11.5-14.5); Red Blood Cell (RBC) Count 5.55 mill/uL (4.20-5.40); White Blood Cell (WBC) Count 6.6 10x3/uL (4.8-10.8)
== END 2022-11-22 11:35 | disposition home or self-care (01) ==
LOC: ERS 04:49 → 2SW 11:29
PROVIDERS: ADMIT Family Medicine; ATTEND Family Medicine
DX: R07.89 Other chest pain (principal); F14.20 Cocaine dependence, uncomplicated; I42.9 Cardiomyopathy, unspecified; I11.0 Hypertensive heart disease with heart failure; I50.22 Chronic systolic (congestive) heart failure; J44.9 Chronic obstructive pulmonary disease, unspecified; E78.5 Hyperlipidemia, unspecified; I25.10 Atherosclerotic heart disease of native coronary artery without angina pectoris; I25.2 Old myocardial infarction; I48.91 Unspecified atrial fibrillation; F10.10 Alcohol abuse, uncomplicated; Z87.891 Personal history of nicotine dependence; Z79.82 Long term (current) use of aspirin; Z79.84 Long term (current) use of oral hypoglycemic drugs; Z79.899 Other long term (current) drug therapy
CPT/HCPCS: 36415; 71045; 80053; 80306; 83735; 83880; 84484; 85025; 93005; 96372; G0378; J1650; J2405

== ENCOUNTER 2022-12-15 21:00 | Observation (INO) | payer OTHER ==
[2022-12-15] MEDS ORDERED: Ipratropium/Albuterol 3 ML NEB ONE (22:16)
[2022-12-15 22:33] LABS: #Basophils 0.1 thou/uL (0.0-0.2); #Eosinphils 0.9 thou/uL (0.0-0.7); #Lymphocytes 1.8 thou/uL (1.20-3.40); #Monocytes 0.4 thou/uL (0.11-0.59); #Neutrophils 2.7 thou/uL (1.40-6.50); %Eosinophils 15.4 % (0.0-10.0); %Lymphocytes 30.4 % (21.0-51.0); %Monocytes 6.3 % (0.0-10.0); Hemoglobin 15.4 g/dL (12.0-16.0); Mean Corpuscular HGB CONC 35.7 g/dL (32.0-36.0); Mean Corpuscular Hemoglobin 33.5 pg (27.0-31.0); Mean Corpuscular Volume 93.7 fl (78.0-98.0); Mean Platelet Volume 9.2 fL (7.4-10.4); Platelet Count 185 10x3/uL (130-400); RBC Distribution Width 12.3 % (11.5-14.5); Red Blood Cell (RBC) Count 4.61 mill/uL (4.20-5.40); White Blood Cell (WBC) Count 5.8 10x3/uL (4.8-10.8)
[2022-12-15 22:36] LABS: ALT (SGPT) 8 U/L (8-55); AST (SGOT) 14 U/L (5-34); Albumin 4.2 g/dL (3.4-4.8); Alkaline Phosphatase 66 U/L (40-110); Anion Gap 14 mmol/L (10-20); BUN (Urea Nitrogen) 20 mg/dL (9.8-20.1); Bilirubin, Total 0.4 mg/dL (0.2-1.2); Calc. Creatinine Clearance 0 mL/min (70-130); Calcium 9.4 mg/dL (7.8-10.44); Carbon Dioxide 26 mmol/L (23-31); Chloride 106 mmol/L (98-107); Estimated GFR 55; Globulin 2.6 g/dL (2.4-3.5); Glucose 94 mg/dL (80-115); Potassium 3.8 mmol/L (3.5-5.1); Protein, Total 6.8 g/dL (5.8-8.1); Sodium 142 mmol/L (136-145)
[2022-12-15] MEDS ORDERED: Aspirin Chewable 81 MG TAB ONE (23:15)
[2022-12-15] MEDS ORDERED: methylPREDNISolone Sod Succ/PF 125 MG/2 ML VIAL ONE (23:15)
[2022-12-15] MEDS ORDERED: cefTRIAXone (ROCEPHIN) 2 GM VIAL ONE (23:15)
[2022-12-15 23:39] LABS: SARS-CoV-2 NAA Rapid Test Not Detected (NotDetected)
[2022-12-16] MEDS ORDERED: Azithromycin 500 MG VIAL ONE (00:12)
[2022-12-16] MEDS ORDERED: Acetaminophen 325 MG TAB PO PRN (01:08)
[2022-12-16] MEDS ORDERED: Acetaminophen 650 MG Suppository PR PRN (01:08)
[2022-12-16] MEDS ORDERED: Ipratropium Bromide 2.5 ml Neb NEB PRN (01:08)
[2022-12-16] MEDS ORDERED: Ondansetron PF 4 MG/2 ML Vial IVP PRN (01:08)
[2022-12-16] MEDS ORDERED: Ondansetron ODT 4 MG TAB PO PRN (01:08)
[2022-12-16 01:31] VITALS: BMI 29.2
[2022-12-16] MEDS ORDERED: Ipratropium/Albuterol 3 ML NEB NEB PRN (04:50)
[2022-12-16 07:19] LABS: Anion Gap 14 mmol/L (10-20); BUN (Urea Nitrogen) 20 mg/dL (9.8-20.1); Calc. Creatinine Clearance 84 mL/min (70-130); Calcium 9.5 mg/dL (7.8-10.44); Carbon Dioxide 24 mmol/L (23-31); Chloride 106 mmol/L (98-107); Estimated GFR 72; Glucose 138 mg/dL (80-115); Potassium 4.4 mmol/L (3.5-5.1); Sodium 140 mmol/L (136-145)
[2022-12-16 07:36] LABS: #Lymphocytes 0.7 thou/uL (1.20-3.40); #Monocytes 0.1 thou/uL (0.11-0.59); #Neutrophils 4.5 thou/uL (1.40-6.50); %Basophils 0.6 % (0.0-1.0); %Eosinophils 0.7 % (0.0-10.0); %Lymphocytes 12.6 % (21.0-51.0); %Monocytes 1.2 % (0.0-10.0); %Neutrophils 84.9 % (42.0-75.0); Hemoglobin 16.4 g/dL (12.0-16.0); Mean Corpuscular Hemoglobin 32.5 pg (27.0-31.0); Mean Corpuscular Volume 92.8 fl (78.0-98.0); Mean Platelet Volume 9.6 fL (7.4-10.4); Platelet Count 189 10x3/uL (130-400); RBC Distribution Width 12.3 % (11.5-14.5); Red Blood Cell (RBC) Count 5.05 mill/uL (4.20-5.40); White Blood Cell (WBC) Count 5.3 10x3/uL (4.8-10.8)
[2022-12-16 07:43] LABS: Amphetamine Not Detected (NotDetected); Barbiturates Screen Not Detected (NotDetected); Benzodiazepine Screen Not Detected (NotDetected); Cocaine Metabolite Screen Detected (NotDetected); Methadone Not Detected (NotDetected); Methamphetamine Not Detected (NotDetected); Opiate Screen Not Detected (NotDetected); Oxycodone Screen Not Detected (NotDetected); Phencyclidine (PCP) Not Detected (NotDetected); THC/Cannabinoid Screen Not Detected (NotDetected); Tricyclic Screen Detected (NotDetected)
[2022-12-16] MEDS ORDERED: Carvedilol 6.25 MG TAB PO SCH (08:00)
[2022-12-16] MEDS: Ipratropium/Albuterol 3 ML NEB NEB SCH ×2 (08:52→10:24)
[2022-12-16 08:56] VITALS: BP 137/94; TEMP 98
[2022-12-16] MEDS ORDERED: methylPREDNISolone Sod Succ 40 MG VIAL IVP SCH (09:00)
[2022-12-16] MEDS ORDERED: Escitalopram Oxalate 20 mg Tablet PO SCH (09:00)
[2022-12-16] MEDS ORDERED: Aspirin Chewable 81 MG TAB PO SCH (09:00)
[2022-12-16] MEDS ORDERED: Lisinopril 10 MG TAB PO SCH (09:00)
[2022-12-16] MEDS ORDERED: Empagliflozin 10 MG TAB PO SCH (09:00)
[2022-12-16] MEDS ORDERED: Simvastatin 10 MG TAB PO SCH (21:00)
[2022-12-16] MEDS ORDERED: QUEtiapine 300 MG TAB PO SCH (21:00)
[2022-12-16] MEDS ORDERED: Azithromycin 500 MG in Sodium Chloride 0.9% 250 ML 250 ML IVPB SCH (21:00)
== END 2022-12-16 13:01 | disposition home or self-care (01) ==
LOC: ERS 21:00 → T4-A 23:24
PROVIDERS: ADMIT Internal Medicine; ATTEND Internal Medicine
DX: J44.1 Chronic obstructive pulmonary disease with (acute) exacerbation (principal); I11.0 Hypertensive heart disease with heart failure; I50.20 Unspecified systolic (congestive) heart failure; I48.91 Unspecified atrial fibrillation; E78.5 Hyperlipidemia, unspecified; I25.2 Old myocardial infarction; Z87.891 Personal history of nicotine dependence; Z79.82 Long term (current) use of aspirin; Z79.84 Long term (current) use of oral hypoglycemic drugs; Z79.899 Other long term (current) drug therapy; Z20.822 Contact with and (suspected) exposure to COVID-19
CPT/HCPCS: 36415; 36416; 71045; 80048; 80053; 80306; 83605; 83880; 84484; 85025; 87040; 87077; 87149; 93005; 94640; 94660; 96365; 96367; 96372; 96375; 96376; G0378; J0456; J0696; J1650; J2920; J2930; J7611; J7620

== ENCOUNTER 2023-09-16 04:34 | Observation (INO) | payer OTHER ==
[2023-09-16] MEDS ORDERED: predniSONE 20 MG TAB ONE (04:47)
[2023-09-16] MEDS ORDERED: Ipratropium/Albuterol 3 ML NEB ONE (04:47)
[2023-09-16] MEDS ORDERED: Sodium Chloride 0.9% 100 ML ONE (05:05)
[2023-09-16] MEDS ORDERED: cefTRIAXone (ROCEPHIN) 1 GM VIAL ONE (05:05)
[2023-09-16] MEDS ORDERED: Magnesium 2 GM/50 ML BAG (IN WATER) ONE (05:05)
[2023-09-16] MEDS ORDERED: Azithromycin 250 MG TAB ONE (05:05)
[2023-09-16 05:09] LABS: #Eosinphils 1.2 thou/uL (0.0-0.7); #Monocytes 0.5 thou/uL (0.11-0.59); #Neutrophils 1.7 thou/uL (1.40-6.50); %Basophils 0.8 % (0.0-1.0); %Monocytes 8.5 % (0.0-10.0); %Neutrophils 32.7 % (42.0-75.0); Hematocrit 45.8 % (36.0-47.0); Hemoglobin 15.7 g/dL (12.0-16.0); Mean Corpuscular HGB CONC 34.3 g/dL (32.0-36.0); Mean Corpuscular Volume 87.6 fl (78.0-98.0); Mean Platelet Volume 10.8 fL (7.4-10.4); Platelet Count 202 10x3/uL (130-400); RBC Distribution Width 12.7 % (11.5-14.5); Red Blood Cell (RBC) Count 5.23 mill/uL (4.20-5.40); White Blood Cell (WBC) Count 5.3 10x3/uL (4.8-10.8)
[2023-09-16 05:34] LABS: Troponin I Less than 0.010 ng/mL (< 0.028)
[2023-09-16 05:36] LABS: Anion Gap 14 mmol/L (10-20); BUN (Urea Nitrogen) 13 mg/dL (9.8-20.1); Calc. Creatinine Clearance 0 mL/min (70-130); Carbon Dioxide 26 mmol/L (23-31); Chloride 104 mmol/L (98-107); Potassium 3.6 mmol/L (3.5-5.1); Sodium 140 mmol/L (136-145)
[2023-09-16 05:37] LABS: ALT (SGPT) 14 U/L (8-55); AST (SGOT) 19 U/L (5-34); Albumin 4.6 g/dL (3.4-4.8); Alkaline Phosphatase 91 U/L (40-110); Bilirubin, Total 0.8 mg/dL (0.2-1.2); Calcium 9.7 mg/dL (7.8-10.44); Estimated GFR 75; Globulin 3.1 g/dL (2.4-3.5); Glucose 92 mg/dL (80-115); Protein, Total 7.7 g/dL (5.8-8.1)
[2023-09-16] MEDS ORDERED: Ipratropium/Albuterol 3 ML NEB NEB PRN (06:19)
[2023-09-16] MEDS ORDERED: Acetaminophen 325 MG TAB PO PRN ×2 (06:30→07:57)
[2023-09-16] MEDS ORDERED: Ondansetron ODT 4 MG TAB SL PRN (06:30)
[2023-09-16] MEDS ORDERED: Ondansetron PF 4 MG/2 ML Vial IVP PRN (06:30)
[2023-09-16 06:31] LABS: SARS-CoV-2 NAA Rapid Test Not Detected (NotDetected)
[2023-09-16] MEDS ORDERED: Albuterol 2.5 MG (3 mL) NEB NEB PRN (07:57)
[2023-09-16] MEDS ORDERED: Metoclopramide HCl 10 MG (2 mL) VIAL IVP PRN (07:57)
[2023-09-16] MEDS ORDERED: Lorazepam 2 MG/ML VIAL IM PRN (07:57)
[2023-09-16] MEDS ORDERED: cloNIDine 0.1 MG TAB PO PRN (07:57)
[2023-09-16] MEDS ORDERED: Lorazepam 1 MG TAB PO PRN (07:57)
[2023-09-16] MEDS ORDERED: Electrolyte Replacement Protocol 1 EACH FS SCH (08:00)
[2023-09-16] MEDS: Carvedilol 6.25 MG TAB PO SCH ×2 (09:28→16:43)
[2023-09-16] MEDS: Furosemide 20 MG TAB PO SCH (09:28)
[2023-09-16] MEDS: Empagliflozin 10 MG TAB PO SCH (09:28)
[2023-09-16] MEDS: Aspirin 81 mg Enteric Coated Tablet PO SCH (09:29)
[2023-09-16] MEDS: Folic Acid 1 MG TAB PO SCH (09:29)
[2023-09-16] MEDS: Lisinopril 10 MG TAB PO SCH (09:29)
[2023-09-16] MEDS: Multivit, Therapeutic 1 TAB PO SCH (09:29)
[2023-09-16] MEDS: Enoxaparin 40 MG (0.4 mL) SYRINGE SC SCH (09:29)
[2023-09-16] MEDS: Thiamine 100 MG TAB PO SCH (09:29)
[2023-09-16 09:32] VITALS: BMI 28.2
[2023-09-16] MEDS ORDERED: guaiFENesin 200 MG TAB PO PRN (12:32)
[2023-09-16] MEDS: Benzonatate 100 MG CAP PO PRN ×3 (13:00→20:34)
[2023-09-16] MEDS: Ipratropium Bromide 2.5 ml Neb NEB SCH ×4 (13:08→22:16)
[2023-09-16] MEDS ORDERED: FLU VACC QS2023-24(6MOS UP)/PF 60 MCG/0.5 ML SYRINGE IM ONE (14:00)
[2023-09-16 16:21] LABS: Amphetamine Not Detected (NotDetected); Barbiturates Screen Not Detected (NotDetected); Benzodiazepine Screen Not Detected (NotDetected); Cocaine Metabolite Screen Detected (NotDetected); Methadone Not Detected (NotDetected); Methamphetamine Not Detected (NotDetected); Opiate Screen Not Detected (NotDetected); Oxycodone Screen Not Detected (NotDetected); Phencyclidine (PCP) Not Detected (NotDetected); THC/Cannabinoid Screen Not Detected (NotDetected); Tricyclic Screen Detected (NotDetected)
[2023-09-16 16:28] LABS: Bacteria/HPF None Seen HPF (None Seen); Bilirubin Negative (Negative); Blood, Urine Negative (Negative); CAUTI Indications for Culture Dysuria,urgency,freq; Clarity Clear (Clear); Glucose, Urine (Dipstick) Greater than 1000 mg/dL (Negative); Ketone, Urine Negative (Negative); Leukocyte Negative Leu/uL (Negative); Nitrite Negative (Negative); Protein, Urine (Dipstick) Negative (Neg-Trace); RBC/HPF None Seen HPF (0-3); Specific Gravity, Urine 1.016 (1.002-1.036); Squamous Epithelial 0-3 HPF (0-3); Urobilinogen Normal mg/dL (Less than 2); WBC/HPF None Seen HPF (0-3); pH, Urine 5.5 (5.0-9.0)
[2023-09-16 16:31] LABS: Urine Culture Reflex No No
[2023-09-16] MEDS: Arformoterol 15 MCG/2 ML NEB NEB SCH (18:35)
[2023-09-16] MEDS: Budesonide 0.5 MG/2 ML NEB INH SCH (18:35)
[2023-09-16] MEDS: Doxycycline 100 MG CAP PO SCH (20:33)
[2023-09-16] MEDS ORDERED: QUEtiapine 300 MG TAB PO SCH (21:00)
[2023-09-17] MEDS: Ipratropium Bromide 2.5 ml Neb NEB SCH ×4 (02:33→13:33)
[2023-09-17] MEDS: Benzonatate 100 MG CAP PO PRN (05:21)
[2023-09-17 05:28] LABS: #Eosinphils 0.4 thou/uL (0.0-0.7); #Monocytes 0.7 thou/uL (0.11-0.59); #Neutrophils 6.1 thou/uL (1.40-6.50); %Basophils 0.2 % (0.0-1.0); %Eosinophils 4.8 % (0.0-10.0); %Lymphocytes 19.7 % (21.0-51.0); %Monocytes 7.4 % (0.0-10.0); %Neutrophils 67.7 % (42.0-75.0); Hematocrit 41.7 % (36.0-47.0); Hemoglobin 14.2 g/dL (12.0-16.0); Mean Corpuscular HGB CONC 34.1 g/dL (32.0-36.0); Mean Corpuscular Hemoglobin 30.1 pg (27.0-31.0); Mean Corpuscular Volume 88.5 fl (78.0-98.0); Mean Platelet Volume 10.8 fL (7.4-10.4); Platelet Count 183 10x3/uL (130-400); RBC Distribution Width 12.8 % (11.5-14.5); Red Blood Cell (RBC) Count 4.71 mill/uL (4.20-5.40); White Blood Cell (WBC) Count 9.1 10x3/uL (4.8-10.8)
[2023-09-17 05:53] LABS: Anion Gap 14 mmol/L (10-20); BUN (Urea Nitrogen) 19 mg/dL (9.8-20.1); Calc. Creatinine Clearance 72 mL/min (70-130); Calcium 9.4 mg/dL (7.8-10.44); Carbon Dioxide 25 mmol/L (23-31); Chloride 106 mmol/L (98-107); Estimated GFR 63; Glucose 90 mg/dL (80-115); Potassium 3.5 mmol/L (3.5-5.1); Sodium 141 mmol/L (136-145)
[2023-09-17] MEDS ORDERED: cefTRIAXone\\ROCEPHIN 1 GM in Sodium Chloride 0.9% 100 ML IVPB SCH (06:00)
[2023-09-17] MEDS: Budesonide 0.5 MG/2 ML NEB INH SCH (06:24)
[2023-09-17] MEDS: Arformoterol 15 MCG/2 ML NEB NEB SCH (06:26)
[2023-09-17 07:52] VITALS: TEMP 97.8
[2023-09-17] MEDS ORDERED: Lorazepam 1 MG TAB PO PRN (07:57)
[2023-09-17] MEDS ORDERED: Potassium Chloride 20 MEQ TAB PO SCH (08:00)
[2023-09-17] MEDS ORDERED: predniSONE 20 MG TAB PO SCH (09:00)
[2023-09-17] MEDS: Aspirin 81 mg Enteric Coated Tablet PO SCH (09:11)
[2023-09-17] MEDS: Carvedilol 6.25 MG TAB PO SCH (09:11)
[2023-09-17] MEDS: Multivit, Therapeutic 1 TAB PO SCH (09:12)
[2023-09-17] MEDS: Doxycycline 100 MG CAP PO SCH (09:12)
[2023-09-17] MEDS: Empagliflozin 10 MG TAB PO SCH (09:12)
[2023-09-17] MEDS: Furosemide 20 MG TAB PO SCH (09:12)
[2023-09-17] MEDS: Folic Acid 1 MG TAB PO SCH (09:12)
[2023-09-17] MEDS: Lisinopril 10 MG TAB PO SCH (09:12)
[2023-09-17] MEDS: Enoxaparin 40 MG (0.4 mL) SYRINGE SC SCH (09:12)
[2023-09-17 09:14] VITALS: BP 173/84
[2023-09-17] MEDS: Thiamine 100 MG TAB PO SCH (09:31)
[2023-09-18] MEDS ORDERED: Lorazepam 1 MG TAB PO PRN (07:57)
[2023-09-19] MEDS ORDERED: Lorazepam 0.5 MG TAB PO PRN (07:57)
== END 2023-09-17 14:04 | disposition home or self-care (01) ==
LOC: ERS 04:34 → SUATTDRO 04:34 → T4-B 06:17
PROVIDERS: ADMIT Family Medicine; ATTEND Family Medicine
DX: J44.1 Chronic obstructive pulmonary disease with (acute) exacerbation (principal); E78.5 Hyperlipidemia, unspecified; I10 Essential (primary) hypertension; F17.210 Nicotine dependence, cigarettes, uncomplicated; Z79.899 Other long term (current) drug therapy; Z79.82 Long term (current) use of aspirin
CPT/HCPCS: 36415; 71045; 80048; 80053; 80306; 81001; 82248; 83880; 84484; 85025; 87633; 87798; 93005; 94640; 96365; 96367; 96372; G0378; J0696; J1650; J3475; J3490; J7512; J7611; J7620; J7626